=== PATIENT | male | born 1950 | race Caucasian/White ===

== ENCOUNTER → 2019-10-02 | Outpatient (CLI) | payer BC ==
--- NOTE | 2019-10-02 23:07 | XR ---
EXAMINATION TYPE: XR forearm LT DATE OF EXAM: 10/02/2019 CLINICAL HISTORY: History of surgery 20 years ago with pain. TECHNIQUE: Two views of the left forearm are obtained. COMPARISON: Prior left forearm x-ray October 28, 2011. FINDINGS: There is no acute fracture or dislocation seen in the left radius or ulna. Redemonstration of fixating plate mid to distal diaphysis of left radius through a healed fracture. Small spur olecr anon at triceps tendon attachment. Visualized portion of wrist is within normal limits. The overlyin g soft tissue appears within normal limits. IMPRESSION: As above.
== END | disposition home or self-care (01) ==
LOC: RADXRMAIN 16:45
PROVIDERS: ATTEND Internal Medicine Geriatric Medicine
DX: M77.9 Enthesopathy, unspecified (principal); M79.602 Pain in left arm

== ENCOUNTER → 2023-07-08 | Outpatient (CLI) | payer BC, MEDICARE ==
--- NOTE | 2023-07-08 14:27 | FL ---
EXAMINATION TYPE: FL barium swallow w video DATE OF EXAM: 07/08/2023 CLINICAL HISTORY: 73-year-old male R05.9 COUGH [id number] ASPIRATION, Dysphagia. TECHNIQUE: Deglutition study is performed utilizing thin liquid barium, honey, barium thick pudding, and barium coated cracker. Total fluoroscopy time: 53 seconds. Total images: None. Real-time fluoroscopy support was provided to speech pathology. DOSE AREA PRODUCT (DAP) UGY*M,MGY*CM: 37.15 COMPARISON: None. FINDINGS: The oral and pharyngeal phases show satisfactory initiation and propagation with all modalities teste d. The patient is a dentulous. However, otherwise, normal mastication is seen with solid modalities t ested. There is no evidence of penetration or aspiration with any modality tested. No significant p haryngeal residue was appreciated. IMPRESSION: Functional swallow. No penetration or aspiration. Please refer to speech therapist notes for further details if necessary.
== END | disposition home or self-care (01) ==
LOC: RADUSWWP 09:57
PROVIDERS: ATTEND Otolaryngology
DX: T17.808A Unspecified foreign body in other parts of respiratory tract causing other injury, initial encounter (principal); R05.9 Cough, unspecified; R13.10 Dysphagia, unspecified
CPT/HCPCS: 74230

== ENCOUNTER → 2024-01-21 | Outpatient (CLI) | payer MEDICARE ==
[2024-01-21 18:23] LABS: HGB 11.7 g/dL (13.0-17.0); MCH 28.7 pg (27.0-32.0); MCHC 32.5 g/dL (32.0-37.0); MCV 88.2 FL (80.0-97.0); Mean Platelet Volume 10.2 FL (9.5-12.2); NRBC Per 100 WBC 0 X 10*3/uL (0.00-0.01); Platelet Count 233 X 10*3/uL (140-440); RBC 4.08 X 10*6/uL (4.40-5.60); RDW 15.3 % (11.5-14.5); WBC 7.35 X 10*3/uL (4.50-10.00)
[2024-01-21 18:25] LABS: Blood Urea Nitrogen 18.2 mg/dL (9.0-27.0); Chloride 100 mmol/L (96-109); Potassium 4.9 mmol/L (3.5-5.5); Sodium 134 mmol/L (135-145)
== END | disposition home or self-care (01) ==
LOC: LABWHC1 14:06
PROVIDERS: ATTEND Internal Medicine Interventional Cardiology
DX: Z01.812 Encounter for preprocedural laboratory examination (principal); R06.02 Shortness of breath
CPT/HCPCS: 36415; 80051; 82565; 84520; 85027

== ENCOUNTER → 2024-01-27 | Day surgery (SDC) | payer MEDICARE, OTHER ==
[2024-01-26 08:53] VITALS: BMI 30.7
[~2024-01-27] MED LIST: ALPRAZolam 0.25 MG TAB PO PRN; ALPRAZolam 0.5 MG TAB PO PRN; ATORVASTATIN 80 MG TAB PO ONE; EMPTY BAG 1 BAG with SODIUM CHLORIDE 0.9% 1,000 ML IV SCH; HEPARIN SODIUM 1,000 UN/ML (10ML VL) ONE; HEPARIN SODIUM,PORCINE (1 ML) 2,500 UNIT in SODIUM CHLORIDE 0.9% 250 ML IRRIGATION PRN; HEPARIN SODIUM,PORCINE 10,000 UNIT in SODIUM CHLORIDE 0.9% 1,000 ML IRRIGATION PRN; NITROGLYCERIN SL TABS 0.4 MG TAB SUBLINGUAL PRN; RX INFO: IV CONTRAST WAS GIVEN 1 EACH MISC MISCELLANE PRN; SODIUM CHLORIDE 0.9% 1,000 ML IV SCH; VERAPAMIL 2.5 MG/ML 2 ML AMP ONE; carisoprodoL 350 MG TAB PO SCH
[2024-01-27] MEDS: SODIUM CHLORIDE 0.9% 1,000 ML IV ONE (06:15)
[2024-01-27] MEDS: ASPIRIN 325 MG TAB PO ONE (06:17)
[2024-01-27 06:34] LABS: Glucose,Whole Blood 144 mg/dL (70-110)
[2024-01-27 07:07] VITALS: RESP 16; TEMP 96.9
[2024-01-27] MEDS: MIDAZOLAM 2 MG/2 ML VIAL IVP ONE (07:41)
[2024-01-27] MEDS: LIDOCAINE 1% INJ 10MG/ML (20 ML MDV) SQ ONE (07:42)
[2024-01-27] MEDS: VERAPAMIL SYRINGE (5 MG/10 ML) INTRAARTER ONE (07:43)
[2024-01-27] MEDS: HEPARIN SODIUM 1,000 UN/ML (10ML VL) IVP ONE (07:48)
[2024-01-27] MEDS: IOPAMIDOL-370 100ML BTL INJ ONE ×2 (08:31→08:32)
--- NOTE | 2024-01-27 08:41 | P.PCN ---
Date of Procedure: 01/27/24 Operative Findings: CARDIAC CATHETERIZATION PERFORMING PHYSICIAN: Del Peacock MD, RPVI PROCEDURE PERFORMED: 1. Selective right and left coronary angiogram 2. Left heart catheterization 3. Ultrasound-guided access of the right radial artery 4. IFR of the left main and RCA INDICATION: Shortness of breath with exertion associated with myocardial perfusion imaging stress test abnormalities COMPLICATION: None APPROACH: Right radial artery LEVEL OF SEDATION: Moderate with a sedation length of 14 minutes PROCEDURE DESCRIPTION: After obtaining an informed consent, the patient was brought to cardiac cathode ray tube assembler. Local anesthesia was performed using lidocaine subcutaneously. The right radial artery was cannulated using Seldinger technique, the guidewire passed easily, following that we advanced a 5-Cypriot sheath dilator assembly, the wire and dilator were removed and sheath was flushed. Following that, 2 mg of verapamil along with 5000 unit heparin were given. Selective right and left coronary angiogram using a 6-Cypriot JR4 and JL 3.5 catheters. Following that we did left heart catheterization using 6-Cypriot pigtail catheter. After that we did an IFR of the left main and right coronary artery. After zeroing the Doppler wire and equalizing between the Doppler wire and guiding catheter which was JL 3.5 short the guiding catheter the left main was engaged and the wire was advanced to the LAD. We did an IFR and that came in to be at 0.83. After that I did equalized between the Doppler wire and the JR4 guiding catheter then I did engage the RCA and I did an IFR of the RCA which came to be at 0.89. The procedure was completed there was no complication. SELECTIVE CORONARY ANGIOGRAM: The right coronary artery: Large-caliber vessel and a dominant vessel with severe lesion involving the proximal to mid RCA Left main: Calcified with a distal lesion appears to be in the range of 70% documented to be flow-limiting by Doppler wire The left circumflex: Large-caliber vessel nondominant vessel with severe disease involving the mid left circumflex The left anterior descending artery: Has mild disease only HEMODYNAMICS: The LVEDP was 12 mmHg with no significant gradient across aortic valve CONCLUSION: 1. Severe disease involving the distal left main coronary artery documented to be flow-limiting by Doppler wire 2. Severe disease involving the proximal to mid LAD documented to be flow- limiting by Doppler wire POSTPROCEDURE MANAGEMENT: Evaluating the patient for CABG
--- NOTE | 2024-01-27 08:43 | P.PCN ---
Date of Procedure: 01/27/24 Operative Findings: AN ABDOMINAL AORTOGRAM AND BILATERAL LOWER EXTREMITIES RUNOFF PERFORMING PHYSICIAN: Del Peacock MD PROCEDURE PERFORMED: 1. An abdominal aortogram 2. Bilateral lower extremities runoff INDICATION: Intermittent claudication COMPLICATION: None LEVEL OF SEDATION: Moderate was sedation length of 10 minutes APPROACH: Right common femoral artery PROCEDURE DESCRIPTION: After obtaining informed consent and explaining the procedure benefits, risks, and complications, the patient was brought to the cardiac grass farm laborer. The right groin was prepped and draped in sterile fashion. The right common femoral artery was cannulated using micropuncture technique, under ultrasound guidance. A micropuncture wire was advanced, and the micropuncture sheath was advanced over the wire, then the micropuncture sheath was exchanged over an 0.35 wire into a 5-[place] sheath dilator assembly then the wire and dilator were removed and sheath was flushed. We did an abdominal aortogram and bilateral lower extremities runoff using 5- [place] pigtail catheter using a power injection. The catheter was initially placed at the level of the renal arteries, and it was pulled into above the bifurcation of the aorta into right and left common iliac arteries. The procedure was completed and there was no complications. SELECTIVE PERIPHERAL ANGIOGRAM: The abdominal aorta: Calcified with mild disease only The common iliac arteries: Angiographically normal The external iliac arteries: Are angiographically normal The internal iliac arteries: Are patent The common femoral arteries: Have mild disease only Superficial femoral arteries: Have mild to moderate diffuse disease with no high-grade stenosis Popliteal arteries: Have mild to moderate disease with no high-grade stenosis Below the knees: The arteries below the knee were poorly visualized CONCLUSION: Overall mild to moderate nonobstructive peripheral arterial disease POSTPROCEDURE MANAGEMENT: Medical treatment
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
[2024-01-27 13:57] VITALS: BP 148/74; PULSE 52
--- NOTE | 2024-01-27 14:05 | CT ---
EXAMINATION TYPE: CT chest wo con CT DLP: 611 mGycm, Automated exposure control for dose reduction was used. DATE OF EXAM: 01/27/2024 1:04 PM COMPARISON: Chest radiograph from same day. Multiple CTs of the chest with most recent on . CLINICAL INDICATION:Male, 73 years old with history of eval aorta to see whether or not it can be cla mped.; PHH, EVAL AORTA TO SEE WHETHER OR NOT IT CAN BE CLAMPED. TECHNIQUE: Multiple axial images were obtained through the chest. Sagittal and coronal reformats were created for review. Contrast used: mL of (None if empty) Oral contrast used: (None if empty) FINDINGS: LUNGS/ PLEURA: The lung parenchyma appears unremarkable. AIRWAY: Patent and unremarkable. HEART: Size within normal limits.. Moderate calcific plaque in the left main and left anterior descen ding coronary arteries MEDIASTINUM: No gross evidence of adenopathy. VASCULATURE: No aortic aneurysm. Small plaque at the valve for their origin of the ascending thor acic aorta. 3 focal plaques in the mid and distal aortic arch. . There are approximately 5 focal gurmeet ques at The junction of the middle and distal third descending thoracic aorta. Small amount of plaq ue at the aortic diaphragmatic hiatus MUSCULOSKELETAL: No acute osseous abnormalities SOFT TISSUES/LYMPH NODES: Unremarkable. LOWER NECK: No significant findings. UPPER ABDOMEN: No acute findings. Several tiny choleliths in the gallbladder. IMPRESSION: Single calcific plaque in the aortic valve or aortic origin. Only 3 focal plaques in the mid and distal aortic arch. Up to 5 focal plaque at the junction of the mid and distal third of the descending aorta. Approximately 3 focal calcific plaques within the distal aortic arch Follow up recommendations for incidental pulmonary nodules, if there are any, are per [employer] [employer] or [employer]. https://radiopaedia.org/articles/zuyumopeoq-jszcbwg-mlafswdfv-hfxdgn-dvjijuyhyvmxukv-1?lang=us
--- NOTE | 2024-01-27 14:25 | IR ---
EXAMINATION TYPE: IR angio abdominal w runoff DATE OF EXAM: 01/27/2024 FLUOROSCOPY Bilateral leg pain. 16.5min fluoro, 51.2 GYcm2. A total of 250 images are submitted.
--- NOTE | 2024-01-27 14:31 | US ---
EXAMINATION TYPE: US vein mapping BILAT DATE OF EXAM: 01/27/2024 2:23 PM COMPARISON: NONE CLINICAL INDICATION: Male, 73 years old with history of preop cardiac surgery; pre op coronary artery bypass graft SIDE PERFORMED: Bilateral TECHNIQUE: Lower extremity saphenous vein is examined and measured utilizing real time linear array sonography. Patient History: Smoker: Previous Heart Disease: Yes Vascular Surgery: No Discoloration: No Hypertension: Yes Diabetes: Yes Paralysis: No Varicosities: No Edema: No DUPLEX FINDINGS: Greater Saphenous: Color flow seen Lesser Saphenous: Color flow seen Measurements in mm: Right Greater Saphenous: Groin: 7.6 x 8.8 mm High Thigh: 4.4 x 3.9 mm Mid Thigh: 3.0 x 2.1 mm Above Knee: 3.6 x 3.0 mm Knee: 2.8 x 2.7 mm Below Knee: 2.4 x 2.1 mm Mid Calf: 1.8 x 1.9 mm At Ankle: 2.9 x 2.0 mm Left Greater Saphenous: Groin: 6.1 x 5.5 mm High Thigh: 4.2 x 3.5 mm Mid Thigh: 3.2 x 2.9 mm Above Knee: 4.2 x 3.2 mm Knee: 3.1 x 2.2 mm Below Knee: 2.6 x 2.2 mm Mid Calf: 2.0 x 1.6 mm At Ankle: 4.1 x 2.3 mm Bilateral GSV have thick vein waters with slightly smaller lumen size. Veins still appear to compr ess. IMPRESSION: 1. Bilateral GSV measurements listed above. 2. Performing surgeon to determine viability as conduit.
--- NOTE | 2024-01-27 15:23 | US ---
EXAMINATION TYPE: US carotid duplex BILAT DATE OF EXAM: 01/27/2024 COMPARISON: NONE CLINICAL INDICATION: Male, 73 years old with history of preop cardiac surgery; Prior smoker, hyperten isabelle, hyperlipidemia, diabetes. Pre op cardiac surgery. TECHNIQUE: Carotid duplex ultrasound examination. Indirect Doppler criteria was utilized. FINDINGS: EXAM MEASUREMENTS: RIGHT: Peak Systolic Velocity (PSV) cm/sec ----- Right CCA: 69.4 ----- Right ICA: 168.7 ----- Right ECA: 91.8 ICA/CCA ratio: 2.4 RIGHT: End Diastole cm/sec ----- Right CCA: 11.9 ----- Right ICA: 34.7 ----- Right ECA: 0.0 LEFT: Peak Systolic Velocity (PSV) cm/sec ----- Left CCA: 71.3 ----- Left ICA: 82.0 ----- Left ECA: 60.3 ICA/CCA ratio: 1.1 LEFT: End Diastole cm/sec ----- Left CCA: 12.0 ----- Left ICA: 18.2 ----- Left ECA: 0.0 VERTEBRALS (direction of flow): Right Vertebral: Antegrade Left Vertebral: Antegrade Rhythm: Normal BLOOD TESTER NOTES: Minimal plaque seen within bilateral bulbs. Elevated velocity within right ICA. R ight ICA dives quickly posterior-limited. IMPRESSION: Slightly elevated velocity right ICA could reflect a moderate (50-69%) stenosis. No hemodynamically s ignificant ICA stenosis on either side. Criteria for Assigning % of Stenosis / Diameter reduction (Estimation based on the indirect measurements of the internal carotid artery velocities (ICA PSV). 1. Normal (no stenosis)=ICA PSV < 125 cm/s: ratio < 2.0: ICA EDV<40 cm/s. 2. Less than 50% stenosis=ICA PSV < 125 cm/s: ratio < 2.0: ICA EDV<40 cm/s. 3. 50 to 69% stenosis=ICA PSV of 125 to 230 cm/s: ration 2.0 ? 4.0: ICA EDV 40-100 cm/s. 4. Greater than 70% stenosis to near occlusion= ICA PSV > 230 cm/s: ratio > 4.0: ICA EDV > 100 cm/s. 5. Near occlusion= ICA PSV velocities may be low or undetectable: variable ratio and ICA EDV. 6. Total occlusion=unable to detect flow.
[2024-01-27 15:38] LABS: ALT 11 U/L (4-49); AST 13 U/L (17-59); African American GFR (CKD) 65 (>60 ml/min/1.73 sqM); Albumin 3.4 g/dL (3.5-5.0); Alkaline Phosphatase 43 U/L (38-126); Anion Gap 4 mmol/L; Blood Urea Nitrogen 17 mg/dL (9-20); Calcium 8.9 mg/dL (8.4-10.2); Carbon Dioxide 28 mmol/L (22-30); Chloride 103 mmol/L (98-107); Glucose 155 mg/dL (74-99); Non-African American GFR(CKD) 56 (>60 ml/min/1.73 sqM); Potassium 4.7 mmol/L (3.5-5.1); Sodium 135 mmol/L (137-145); Total Bilirubin 0.2 mg/dL (0.2-1.3); Total Protein 5.8 g/dL (6.3-8.2)
[2024-01-27 16:09] LABS: Basophils % (A) 0 %; Eosinophils # (A) 0.1 k/uL (0-0.7); Eosinophils % (A) 1 %; HCT 35.8 % (39.0-53.0); HGB 11.3 gm/dL (13.0-17.5); Lymphocytes # (A) 1.1 k/uL (1.0-4.8); Lymphocytes % (A) 19 %; MCH 28.8 pg (25.0-35.0); MCHC 31.7 g/dL (31.0-37.0); MCV 91.1 fL (80.0-100.0); Mean Platelet Volume 9.1; Monocytes # (A) 0.3 k/uL (0-1.0); Monocytes % (A) 6 %; Neutrophils # (A) 4.3 k/uL (1.3-7.7); Neutrophils % (A) 73 %; Platelet Count 171 k/uL (150-450); RBC 3.93 m/uL (4.30-5.90); WBC 5.9 k/uL (3.8-10.6)
[2024-01-27 19:18] LABS: Chol/HDL Ratio 2.51 Ratio
[2024-01-27 19:25] LABS: Hepatitis A Antibody IgM Nonreactive (Nonreactive); Hepatitis B Core IgM Nonreactive (Nonreactive); Hepatitis B Surface Antigen Nonreactive (Nonreactive); Hepatitis C IgG Antibody Nonreactive (Nonreactive)
--- NOTE | 2024-01-28 06:58 | US ---
EXAMINATION TYPE: Pre-Operative Non-Invasive Evaluation of the hand for Potential Radial Artery Mckayla rivas, Measurements only DATE OF EXAM: 01/27/2024 2:22 PM CLINICAL INDICATION: Male, 73 years old with history of measurements only; Pre op cardiac surgery SIDE PERFORMED: Left TECHNIQUE: Radial artery is measured utilizing real time linear array sonography. Dominant hand: Right Duplex Findings: Radial Artery: Color flow seen Measurements in mm, transverse view: Left Radial: Proximal: 3.6 x 3.1 mm Mid: 3.1 x 2.8 mm Distal: 2.8 x 2.2 mm IMPRESSION: Patent left radial artery with measurements described above.
== END ==
LOC: CATHCVL 06:06
PROVIDERS: ATTEND Internal Medicine Interventional Cardiology
DX: I25.10 Atherosclerotic heart disease of native coronary artery without angina pectoris (principal); I10 Essential (primary) hypertension; G89.29 Other chronic pain; E78.5 Hyperlipidemia, unspecified; E11.51 Type 2 diabetes mellitus with diabetic peripheral angiopathy without gangrene; E11.42 Type 2 diabetes mellitus with diabetic polyneuropathy; M19.90 Unspecified osteoarthritis, unspecified site; H91.90 Unspecified hearing loss, unspecified ear; F12.90 Cannabis use, unspecified, uncomplicated; Z79.84 Long term (current) use of oral hypoglycemic drugs; Z88.8 Allergy status to other drugs, medicaments and biological substances; Z79.899 Other long term (current) drug therapy; Z87.891 Personal history of nicotine dependence
CPT/HCPCS: 94150; 93458; 93799; 75625; 75716; 76937; 80061; 80053; 80074; 84443; 85025; 87070; 83036; 93931; 93970; 93880; 71250; C1769 ×3; C1887 ×2; C1894; J2250; J2001; J1644; Q9967; 86850; 86900; 86901; 86920

== ENCOUNTER → 2024-01-29 | Outpatient (CLI) | payer OTHER ==
[2024-01-29 22:45] LABS: ALT 11 U/L (10-49); AST 14 U/L (14-35); Albumin 4.5 g/dL (3.8-4.9); Albumin/Globulin Ratio 1.96 Ratio (1.60-3.17); Alkaline Phosphatase 45 U/L (41-126); BUN/Creat Ratio 13.36 Ratio (12.00-20.00); Blood Urea Nitrogen 14.7 mg/dL (9.0-27.0); Calcium 9.9 mg/dL (8.7-10.3); Carbon Dioxide 23.7 mmol/L (21.6-31.8); Chloride 99 mmol/L (96-109); Globulin 2.3 g/dL (1.6-3.3); Glucose 106 mg/dL (70-110); Potassium 4.5 mmol/L (3.5-5.5); Sodium 135 mmol/L (135-145); Total Bilirubin 0.3 mg/dL (0.3-1.2); Total Protein 6.8 g/dL (6.2-8.2)
== END | disposition home or self-care (01) ==
LOC: LABWHC1 08:29
PROVIDERS: ATTEND Internal Medicine Geriatric Medicine
DX: I12.9 Hypertensive chronic kidney disease with stage 1 through stage 4 chronic kidney disease, or unspecified chronic kidney disease (principal); N18.9 Chronic kidney disease, unspecified
CPT/HCPCS: 36415; 80053

== ENCOUNTER → 2024-02-02 | Outpatient (CLI) | payer OTHER ==
[2024-02-02 09:15] LABS: INR 0.9 (<1.2); Partial Thromboplastin Time 26.6 sec (22.0-30.0); Prothrombin Time 10.4 sec (10.0-12.5)
[2024-02-02 09:18] LABS: Appearance,Urine Clear (Clear); Bilirubin,Urine Negative (Negative); Blood,Urine Trace (Negative); Color,Urine Colorless; Glucose,Urine (UA) Negative (Negative); Ketones,Urine Negative (Negative); Leukocyte Esterase,Urine Negative (Negative); Nitrite,Urine Negative (Negative); Protein,Urine Negative (Negative); RBC,Urine <1 /hpf (0-5); Specific Gravity,Urine 1.008 (1.001-1.035); Urobilinogen,Urine <2.0 mg/dL (<2.0); WBC,Urine <1 /hpf (0-5)
--- NOTE | 2024-02-02 09:47 | XR ---
EXAMINATION TYPE: XR chest 2V DATE OF EXAM: 02/02/2024 8:50 AM CLINICAL INDICATION:Male, 73 years old with history of PRE SURG TESTING; [facility] COMPARISON: Chest radiographs from 02/02/2024 TECHNIQUE: XR chest 2V Frontal and lateral views of the chest. FINDINGS: Lungs/Pleura: There is no evidence of pleural effusion, focal consolidation, or pneumothorax. Pulmonary vascularity: Unremarkable. Heart/mediastinum: Cardiomediastinal silhouette is unremarkable. Musculoskeletal: No acute osseous pathology. Severe degeneration changes of the left shoulder. IMPRESSION: No acute cardiopulmonary disease/process.
== END | disposition home or self-care (01) ==
LOC: LABPAT 08:17
PROVIDERS: ATTEND Thoracic Surgery (Cardiothoracic Vascular Surgery)
DX: Z01.812 Encounter for preprocedural laboratory examination (principal); R07.9 Chest pain, unspecified; R06.02 Shortness of breath
CPT/HCPCS: 36415; 71046; 81001; 83735; 85610; 85730

== ENCOUNTER 2024-02-07 05:34 | Inpatient (IN) | payer OTHER ==
[~2024-02-07 05:34] MED LIST changes: +ALBUMIN HUMAN 25% 50 ML IV ONE; +ALBUMIN HUMAN 5% 500 ML IVPB ONE; -ALPRAZolam 0.25 MG TAB PO PRN; -ALPRAZolam 0.5 MG TAB PO PRN; +ASPIRIN 325 MG TAB PO ONE; -ATORVASTATIN 80 MG TAB PO ONE; +CALCIUM CHLORIDE 100 MG/ML 10 ML SYRINGE IV ONE; +CLEVIDIPINE BUTYRATE 25 MG in EMPTY BAG 1 BAG IV ONE; +ELECTROLYTE-A SOLUTION 1,000 ML with POTASSIUM CHLORIDE 100 MEQ, MAGNESIUM SULFATE 16 M... IV ONE; +ELECTROLYTE-A SOLUTION 1,000 ML with POTASSIUM CHLORIDE 40 MEQ, MAGNESIUM SULFATE 16 ME... IV ONE; -EMPTY BAG 1 BAG with SODIUM CHLORIDE 0.9% 1,000 ML IV SCH; +HEPARIN SODIUM 1,000 UN/ML (10ML VL) IV ONE; -HEPARIN SODIUM 1,000 UN/ML (10ML VL) ONE; -HEPARIN SODIUM,PORCINE (1 ML) 2,500 UNIT in SODIUM CHLORIDE 0.9% 250 ML IRRIGATION PRN; +HEPARIN SODIUM,PORCINE (1 ML) 5,000 UNIT in SODIUM CHLORIDE 0.9% 500 ML 500 ML IV ONE; -HEPARIN SODIUM,PORCINE 10,000 UNIT in SODIUM CHLORIDE 0.9% 1,000 ML IRRIGATION PRN; +INSULIN REGULAR 100 UNIT in SODIUM CHLORIDE 0.9% 100 ML IV ONE; +LACTATED RINGERS 1,000 ML IV ONE; +MAGNESIUM SULFATE 16.24 MEQ in EMPTY SYRINGE 1 SYR IV ONE; +MANNITOL 25% 12.5 GM/50 ML VIAL IV ONE; +NITROGLYCERIN SL TABS 0.4 MG TAB SUBLINGUAL ONE; -NITROGLYCERIN SL TABS 0.4 MG TAB SUBLINGUAL PRN; +NITROGLYCERIN-D5W PMX 25 MG/250 ML BTL IV ONE; +NITROGLYCERIN-D5W PMX 50 MG in DEXTROSE/WATER 1 250ML.BAG IV ONE; +NOREPINEPHRINE 4 MG in SODIUM CHLORIDE 0.9% 250 ML IV ONE; +PAPAVERINE 360 MG in SODIUM CHLORIDE 0.9% 90 ML IV ONE; +PHENYLEPHRINE 10 MG/ML VIAL IV ONE; +PHENYLEPHRINE 40 MG in SODIUM CHLORIDE 0.9% 250 ML IV ONE; +PROTAMINE SULFATE 10 MG/ML 25 ML VIAL IV ONE; +PROTAMINE SULFATE 250 MG in EMPTY BAG 1 BAG IV ONE; -RX INFO: IV CONTRAST WAS GIVEN 1 EACH MISC MISCELLANE PRN; +SODIUM BICARB 8.4% 50 ML SYR (1 MEQ/ML) IV ONE; +SODIUM CHLORIDE 0.9% 1,000 ML IV ONE; -SODIUM CHLORIDE 0.9% 1,000 ML IV SCH; +TRANEXAMIC ACID 2,000 MG in SODIUM CHLORIDE 0.9% 80 ML IV ONE; -VERAPAMIL 2.5 MG/ML 2 ML AMP ONE; -carisoprodoL 350 MG TAB PO SCH; +ceFAZolin 1,000 MG in SODIUM CHLORIDE 0.9% IRRIGATIO 1,000 ML IRRIGATION ONE; +propofoL 1,000 MG/100 ML VIAL IV ONE
[2024-02-07] MEDS: LACTATED RINGERS 1,000 ML IV ONE (06:09)
[2024-02-07] MEDS: CHLORHEXIDINE GLUCONATE 15 ML CUP MUCOUS MEM ONE (06:14)
[2024-02-07] MEDS: METOPROLOL TARTRATE 12.5 MG TAB PO ONE (06:14)
[2024-02-07] MEDS: ATORVASTATIN 10 MG TAB PO ONE (06:14)
[2024-02-07 06:40] LABS: Glucose,Whole Blood 92 mg/dL (70-110)
[2024-02-07] MEDS: hydrALAZINE HCL 20 MG/ML 1 ML VIAL IVP ONE (06:53)
[2024-02-07] MEDS ORDERED: HEPARIN SODIUM,PORCINE 10,000 UNIT/ML 1 ML VIAL ONE (07:51)
[2024-02-07] MEDS ORDERED: HEPARIN SODIUM,PORCINE 5,000 UNIT/ML 1 ML VIAL ONE (07:51)
[2024-02-07] MEDS ORDERED: PROPOFOL 10 MG/ML 20 ML VIAL IV ONE (07:51)
[2024-02-07] MEDS ORDERED: VECURONIUM 10 MG VIAL IV ONE (07:51)
[2024-02-07] MEDS ORDERED: ALBUMIN HUMAN 5% (25gm) 500 ML VIAL IVPB ONE (07:51)
[2024-02-07] MEDS ORDERED: PROTAMINE SULFATE 10 MG/ML 25 ML VIAL IV ONE (07:51)
[2024-02-07] MEDS ORDERED: MIDAZOLAM HCL 10 MG/10 ML VIAL ONE (07:51)
[2024-02-07] MEDS ORDERED: PHENYLEPHRINE 10 MG/ML VIAL ONE (07:51)
[2024-02-07] MEDS ORDERED: fentaNYL (PF) 50 MCG/ML 50 ML VIAL ONE (07:51)
[2024-02-07 08:28] LABS: ABG Base Excess 0.6 mmol/L; ABG HCO3 25 mmol/L (21-25); ABG PCO2 39 mmHg (35-45); ABG PH 7.42 (7.35-7.45); ABG PO2 341 mmHg (83-108); ABG TCO2 26 mmol/L (19-24); Allen Test Performed? Yes
[2024-02-07 09:31] LABS: ABG Base Excess -0.7 mmol/L; ABG Glucose Whole Blood 146 mg/dL (75-99); ABG HCO3 26 mmol/L (21-25); ABG Hematocrit 29 % (34.0-46.0); ABG Ionized Calcium 4.8 mg/dL (4.5-5.3); ABG Lactic Acid Whole Blood 0.7 mmol/L (0.5-1.6); ABG Oxygen Saturation 98.6 % (94-97); ABG PCO2 49 mmHg (35-45); ABG PH 7.33 (7.35-7.45); ABG PO2 150 mmHg (83-108); ABG Potassium Whole Blood 4.3 mmol/L (3.4-4.5); ABG Sodium Whole Blood 136 mmol/L (135-146); Allen Test Performed? Yes
[2024-02-07] MEDS: PAPAVERINE 360 MG in SODIUM CHLORIDE 0.9% 90 ML IV ONE (09:52)
[2024-02-07] MEDS: SODIUM CHLORIDE 0.9% 500 ML 500 ML with HEPARIN SODIUM,PORCINE (1 ML) 5,000 UNIT IV ONE (09:52)
[2024-02-07] MEDS: ceFAZolin 1,000 MG in SODIUM CHLORIDE 0.9% 1,000 ML IRRIGATION ONE (09:52)
[2024-02-07] MEDS: DILTIAZEM 125 MG in SODIUM CHLORIDE 0.9% 100 ML IV ONE (09:52)
[2024-02-07 10:40] LABS: ABG Base Excess -0.1 mmol/L; ABG Glucose Whole Blood 133 mg/dL (75-99); ABG HCO3 26 mmol/L (21-25); ABG Hematocrit 38 % (34.0-46.0); ABG Ionized Calcium 4.8 mg/dL (4.5-5.3); ABG Lactic Acid Whole Blood 0.5 mmol/L (0.5-1.6); ABG Oxygen Saturation 98.9 % (94-97); ABG PCO2 44 mmHg (35-45); ABG PH 7.37 (7.35-7.45); ABG PO2 195 mmHg (83-108); ABG Potassium Whole Blood 4.1 mmol/L (3.4-4.5); ABG Sodium Whole Blood 135 mmol/L (135-146); Allen Test Performed? Yes
[2024-02-07 11:47] LABS: ABG Base Excess -2.6 mmol/L; ABG Glucose Whole Blood 138 mg/dL (75-99); ABG HCO3 23 mmol/L (21-25); ABG Hematocrit 25 % (34.0-46.0); ABG Ionized Calcium 5.1 mg/dL (4.5-5.3); ABG Lactic Acid Whole Blood <0.4 mmol/L (0.5-1.6); ABG Oxygen Saturation 98.9 % (94-97); ABG PCO2 41 mmHg (35-45); ABG PH 7.36 (7.35-7.45); ABG PO2 201 mmHg (83-108); ABG Potassium Whole Blood 3.7 mmol/L (3.4-4.5); ABG Sodium Whole Blood 137 mmol/L (135-146); Allen Test Performed? Yes
--- NOTE | 2024-02-07 12:22 | P.OP ---
Date of Procedure: 02/07/24 Preoperative Diagnosis: 3v CAD DM HTN HLD PVD Postoperative Diagnosis: Same Procedure(s) Performed: 1. Off pump coronary artery bypass grafting x 3. Left internal thoracic artery (in-situ) to left anterior descending coronary artery. Radial artery from aorta to 1st diagonal artery. Reverse saphenous vein from aorta to distal right coronary artery. 2. Left atrial appendage ligation using #35mm AtriClip 3. Endoscopic left radial and left greater saphenous vein harvest 4. Graft flow measurements using the Medi-Stim flow meter system. 5. Trans-esophageal echo Implants: #35mm AtriClip Anesthesia: GERA Surgeon: Galo Hines Storage And Backup Administrator #1: Trevin Cooley Pathology: none sent Condition: critical Disposition: ICU Indications for Procedure: This patient is a 73 year-old M who was being worked up for peripheral vascular disease and failed a stress test. Coronary angiography revealed significant distal left main coronary artery disease as well as severe stenosis in the circumflex and right coronary arteries. His STS risk of morbidity and mortality was discussed with him and CABG was recommended. Operative Findings: RICO 1.75mm good conduit. LAD 1.5mm decent target. PAGE-LAD Flow 15ml/min, P.I. 2.5 SVG 2.75mm decent conduit. RCA 2.0mm good target. SVG-RCA Flow 53ml/min, P.I. 1.2 RA 2.25mm good conduit. 1st Diagonal 1.5mm good target. RA-Diag Flow 33ml/min, P.I. 1.0 Description of Procedure: The patient underwent central line, arterial line, and Comstock Faviola catheter placement in the pre-operative suite by the anesthesia team. The patient was then brought to the operating room and placed in the supine position. General anesthesia was induced and the patient was prepped from the chin to the ankles in the usual sterile fashion. A time-out was performed and antibiotics were given. A midline incision was made on the chest and carried down to bone. A median sternotomy was performed. Hemostasis on the bone was achieved using electrocautery. The left pleura was entered and the left internal thoracic artery was harvested in a skeletonized fashion. Simultaneously a physician office clerk assistant harvested the left greater saphenous vein and left radial artery in an endoscopic fashion. The patient was systemically heparinized and the RICO was transected and placed in a papaverine jacuzzi. A left sided chest tube was placed. The pericardium was incised in a reverse T-fashion and a pericardial cradle was created. The right pleura was opened. Stay sutures were placed. #35mm AtriClip was placed on the left atrial appendage. With ACT > 250, the octopus sabilizer was placed on the mid to distal LAD which was a good target. An ateriorotomy was made and 1.5mm shunt inserted. An end to side anastomosis between the RICO and LAD was performed using a running 7-0 prolene. The shunt was removed prior to t ieing down the suture. Next stay sutures were placed on the diaphragm near the IVC and oblique sinus. The inferior wall was exposed and the distal right coronary artery was stabilized. The artery was opened it was a good target and 2.0mm flow through inserted. An end to side anastomosis between the saphenous vein and RCA was performed using a running 7-0 prolene again removing the shunt prior to tieing down the suture. Next the lateral wall was exposed and the first diagonal artery was identified. The stabilizer was placed on the vessel and arteriorotomy was made. 1.5mm flow through was inserted. An end to side anastomosis was created with the radial artery and diagonal artery using a running 7-0 prolene. The flow through was removed prior to tieing down the suture. Next, the heartstring device was used to create aortotomy x 2. The saphenous vein and radial artery were fastened to the ascending aorta using a running 5-0 prolene suture in an end to side fashion. The heartstring device was removed in its entirety x 2. At this point, graft flows were measured which were excellent. At this point, protamine was given and hemostasis was secured. A 32F chest tube and 19F rinku were placed in the mediastinum and right pleura respectively. The pericardium was reapproximated partially and the sternum was closed with pioneer cables and layers of suture. The leg was closed in layers as well. The patient tolerated the procedure without any significant hypotension and was transferred to CVICU in critical condition on only nitro gtt.
[2024-02-07] MEDS ORDERED: Potassium Replacement Protocol 1 EACH MISC MISCELLANE PRN (12:23)
[2024-02-07] MEDS ORDERED: AMIODARONE 450 MG in DEXTROSE 5% IN WATER 250 ML IV PRN (12:23)
[2024-02-07] MEDS ORDERED: BENZOCAINE/MENTHOL LOZENG 1 EACH LOZENGE MUCOUS MEM PRN (12:23)
[2024-02-07] MEDS ORDERED: Magnesium Replacement Protocol 1 EACH MISC MISCELLANE PRN (12:23)
[2024-02-07] MEDS ORDERED: DEXTROSE 50% SYRINGE 50 ML IVP PRN ×2 (12:23)
[2024-02-07] MEDS ORDERED: IPRATROPIUM-ALBUTEROL 3 ML NEB INHALATION PRN (12:23)
[2024-02-07] MEDS ORDERED: AMIODARONE 360 MG in DEXTROSE 5% IN WATER 200 ML IV PRN (12:23)
[2024-02-07] MEDS ORDERED: DEXTROSE 5% IN WATER 100 ML with AMIODARONE 150 MG IV PRN (12:23)
[2024-02-07] MEDS ORDERED: DEXMEDETOMIDINE/0.9% NACL(PMX) 400 MCG in EMPTY BAG 1 BAG IV SCH (12:45)
[2024-02-07] MEDS: NITROGLYCERIN-D5W PMX 50 MG in DEXTROSE/WATER 1 250ML.BAG IV SCH (12:45)
[2024-02-07] MEDS: LACTATED RINGERS 1,000 ML IV SCH (12:45)
[2024-02-07] MEDS: CLEVIDIPINE BUTYRATE 25 MG in EMPTY BAG 1 BAG IV SCH (12:46)
[2024-02-07] MEDS: ALBUMIN HUMAN 5% 250 ML in EMPTY BAG 1 BAG IVPB PRN (12:47)
[2024-02-07 12:49] LABS: Glucose,Whole Blood 164 mg/dL (70-110)
[2024-02-07 13:07] LABS: Basophils % (A) 0 %; Eosinophils # (A) 0.1 k/uL (0-0.7); Eosinophils % (A) 1 %; HCT 28.4 % (39.0-53.0); Lymphocytes # (A) 1.1 k/uL (1.0-4.8); Lymphocytes % (A) 14 %; MCH 29.2 pg (25.0-35.0); MCHC 32.7 g/dL (31.0-37.0); MCV 89.6 fL (80.0-100.0); Mean Platelet Volume 8.9; Monocytes # (A) 0.4 k/uL (0-1.0); Monocytes % (A) 6 %; Neutrophils # (A) 6.4 k/uL (1.3-7.7); Neutrophils % (A) 79 %; Platelet Count 139 k/uL (150-450); RBC 3.17 m/uL (4.30-5.90); WBC 8.1 k/uL (3.8-10.6)
[2024-02-07 13:11] LABS: HGB 9.3 gm/dL (13.0-17.5)
[2024-02-07 13:12] LABS: INR 1.1 (<1.2); Partial Thromboplastin Time 28.6 sec (22.0-30.0); Prothrombin Time 12.2 sec (10.0-12.5)
[2024-02-07 13:19] LABS: Ionized Calcium 4.9 mg/dL (4.5-5.3)
--- NOTE | 2024-02-07 13:31 | XR ---
EXAMINATION TYPE: XR chest 1V portable DATE OF EXAM: 02/07/2024 1:25 PM CLINICAL INDICATION:Male, 73 years old with history of Post Operative Cardiac Surgery; [facility] COMPARISON: Chest radiographs from TECHNIQUE: XR chest 1V portable Frontal view of the chest. FINDINGS: Lungs/Pleura: There is no evidence of pleural effusion, focal consolidation, or pneumothorax. Pulmonary vascularity: Unremarkable. Heart/mediastinum: Cardiomediastinal silhouette is prominent in size. Atherosclerotic calcifications are seen in the aorta. Left atrial appendage occlusion device is present. Musculoskeletal: No acute osseous pathology. Midline sternotomy wires are noted. Other findings: None Lines/Tubes: Endotracheal tube with distal tip 5.1 cm above the lavonne. Nasogastric tube with its distal tip and side-port projecting under the diaphragm. There is a [place]-Faviola catheter with tip projecting over the spine. Bilateral thoracotomy tubes are present without evidence of pneumothorax. Drainage tubes with tips projecting over the mediastinum. IMPRESSION: Post surgical changes. No evidence for acute complication.
[2024-02-07] MEDS: INSULIN REGULAR 100 UNIT in SODIUM CHLORIDE 0.9% 100 ML IV SCH (13:37)
[2024-02-07 13:39] LABS: ABG Base Excess -1.8 mmol/L; ABG HCO3 23 mmol/L (21-25); ABG Oxygen Saturation 99.7 % (94-97); ABG PCO2 36 mmHg (35-45); ABG PH 7.41 (7.35-7.45); ABG PO2 >400 mmHg (83-108); ABG TCO2 24 mmol/L (19-24); Allen Test Performed? Yes
[2024-02-07 13:44] LABS: ALT 9 U/L (4-49); AST 14 U/L (17-59); African American GFR (CKD) >90 (>60 ml/min/1.73 sqM); Albumin 3.1 g/dL (3.5-5.0); Alkaline Phosphatase 32 U/L (38-126); Anion Gap 4 mmol/L; Blood Urea Nitrogen 16 mg/dL (9-20); Calcium 8.4 mg/dL (8.4-10.2); Carbon Dioxide 21 mmol/L (22-30); Chloride 109 mmol/L (98-107); Glucose 143 mg/dL (74-99); Magnesium 1.7 mg/dL (1.6-2.3); Non-African American GFR(CKD) >90 (>60 ml/min/1.73 sqM); Potassium 4.3 mmol/L (3.5-5.1); Sodium 134 mmol/L (137-145); Total Bilirubin 0.3 mg/dL (0.2-1.3); Total Protein 5.2 g/dL (6.3-8.2)
[2024-02-07 14:01] LABS: Glucose,Whole Blood 170 mg/dL (70-110)
[2024-02-07] MEDS: MAGNESIUM SULFATE-D5W PMX 1 GM in DEXTROSE/WATER 1 100ML.BAG IVPB ONE (14:32)
[2024-02-07 15:02] LABS: Glucose,Whole Blood 187 mg/dL (70-110)
[2024-02-07 15:49] LABS: Glucose,Whole Blood 198 mg/dL (70-110)
[2024-02-07 16:45] LABS: ABG Base Excess -2.8 mmol/L; ABG HCO3 24 mmol/L (21-25); ABG Oxygen Saturation 98.6 % (94-97); ABG PCO2 47 mmHg (35-45); ABG PO2 112 mmHg (83-108); ABG TCO2 25 mmol/L (19-24); Allen Test Performed? Yes
[2024-02-07 16:52] LABS: Basophils % (A) 0 %; Eosinophils % (A) 0 %; HCT 28.1 % (39.0-53.0); HGB 9.6 gm/dL (13.0-17.5); Lymphocytes # (A) 1.1 k/uL (1.0-4.8); Lymphocytes % (A) 11 %; MCH 30.1 pg (25.0-35.0); MCV 88.5 fL (80.0-100.0); Mean Platelet Volume 8.5; Monocytes # (A) 0.5 k/uL (0-1.0); Monocytes % (A) 5 %; Neutrophils # (A) 8.5 k/uL (1.3-7.7); Neutrophils % (A) 83 %; Platelet Count 168 k/uL (150-450); RBC 3.18 m/uL (4.30-5.90); WBC 10.3 k/uL (3.8-10.6)
[2024-02-07] MEDS: IPRATROPIUM-ALBUTEROL 3 ML NEB INHALATION SCH ×2 (16:52→21:06)
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
[2024-02-07 17:19] LABS: Glucose,Whole Blood 161 mg/dL (70-110)
[2024-02-07] MEDS: HEPARIN SODIUM,PORCINE 5,000 UNIT/ML 1 ML VIAL SQ SCH (17:24)
[2024-02-07] MEDS: KETOROLAC 15 MG/ML 1 ML VIAL IVP SCH (17:44)
[2024-02-07 18:18] LABS: Glucose,Whole Blood 144 mg/dL (70-110)
[2024-02-07] MEDS: ACETAMINOPHEN IV (For NPO) 1,000 MG in EMPTY BAG 1 BAG IVPB SCH (18:26)
[2024-02-07 18:43] LABS: Glucose,Whole Blood 150 mg/dL (70-110)
[2024-02-07] MEDS: hydrALAZINE HCL 20 MG/ML 1 ML VIAL IVP PRN (18:47)
[2024-02-07 19:34] LABS: Basophils % (A) 0 %; Eosinophils % (A) 0 %; HCT 30.5 % (39.0-53.0); HGB 10.1 gm/dL (13.0-17.5); Lymphocytes % (A) 7 %; MCH 29.7 pg (25.0-35.0); MCHC 33.3 g/dL (31.0-37.0); MCV 89.4 fL (80.0-100.0); Mean Platelet Volume 8.9; Monocytes % (A) 7 %; Neutrophils % (A) 85 %; Platelet Count 203 k/uL (150-450); RBC 3.41 m/uL (4.30-5.90); RDW 15.1 % (11.5-15.5); WBC 14.2 k/uL (3.8-10.6)
[2024-02-07] MEDS: ONDANSETRON 4 MG/2 ML VIAL IVP PRN (20:00)
[2024-02-07 20:07] LABS: Glucose,Whole Blood 125 mg/dL (70-110)
[2024-02-07 20:51] LABS: Glucose,Whole Blood 109 mg/dL (70-110)
[2024-02-07 21:57] LABS: Glucose,Whole Blood 130 mg/dL (70-110)
[2024-02-07 23:17] LABS: Glucose,Whole Blood 141 mg/dL (70-110)
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
[2024-02-08 00:07] LABS: Glucose,Whole Blood 131 mg/dL (70-110)
[2024-02-08 01:10] LABS: Glucose,Whole Blood 110 mg/dL (70-110)
[2024-02-08 03:00] LABS: Glucose,Whole Blood 130 mg/dL (70-110)
[2024-02-08 04:22] LABS: Glucose,Whole Blood 141 mg/dL (70-110)
[2024-02-08 05:16] LABS: Glucose,Whole Blood 120 mg/dL (70-110)
[2024-02-08 05:23] LABS: Basophils % (A) 0 %; Eosinophils % (A) 0 %; HCT 30.8 % (39.0-53.0); HGB 10.1 gm/dL (13.0-17.5); Lymphocytes # (A) 0.5 k/uL (1.0-4.8); Lymphocytes % (A) 5 %; MCH 29.2 pg (25.0-35.0); MCHC 32.8 g/dL (31.0-37.0); MCV 89.1 fL (80.0-100.0); Mean Platelet Volume 10.1; Monocytes # (A) 0.7 k/uL (0-1.0); Monocytes % (A) 7 %; Neutrophils % (A) 87 %; Platelet Count 177 k/uL (150-450); RBC 3.45 m/uL (4.30-5.90); WBC 10.3 k/uL (3.8-10.6)
[2024-02-08 05:31] LABS: Ionized Calcium 4.8 mg/dL (4.5-5.3)
[2024-02-08 05:47] LABS: ALT 13 U/L (4-49); AST 19 U/L (17-59); African American GFR (CKD) >90 (>60 ml/min/1.73 sqM); Albumin 3.2 g/dL (3.5-5.0); Alkaline Phosphatase 33 U/L (38-126); Anion Gap 5 mmol/L; Blood Urea Nitrogen 16 mg/dL (9-20); Calcium 8.8 mg/dL (8.4-10.2); Carbon Dioxide 22 mmol/L (22-30); Chloride 105 mmol/L (98-107); Glucose 108 mg/dL (74-99); Magnesium 1.8 mg/dL (1.6-2.3); Non-African American GFR(CKD) 87 (>60 ml/min/1.73 sqM); Sodium 132 mmol/L (137-145); Total Bilirubin 0.3 mg/dL (0.2-1.3); Total Protein 5.4 g/dL (6.3-8.2)
[2024-02-08] MEDS: METOCLOPRAMIDE 5 MG/ML 2 ML VIAL IVP PRN (06:24)
[2024-02-08 06:31] LABS: Glucose,Whole Blood 104 mg/dL (70-110)
[2024-02-08] MEDS: MAGNESIUM SULFATE-D5W PMX 1 GM in DEXTROSE/WATER 1 100ML.BAG IVPB ONE (06:51)
[2024-02-08] MEDS ORDERED: ACETAMINOPHEN TAB 325 MG TAB PO PRN (07:23)
--- NOTE | 2024-02-08 07:38 | XR ---
EXAMINATION TYPE: XR chest 1V portable DATE OF EXAM: 02/08/2024 Comparison: 02/07/2024 Clinical History: 73-year-old male Post Operative Cardiac Surgery Findings: Right IJ Ralph-Faviola catheter tip at the proximal right main pulmonary artery. Interval extubation and removal of NG tube. Mediastinal drain is in place. Median sternotomy wires and post-CABG clips. Bilat eral chest tubes are in place. No appreciable pneumothorax. Hypoventilatory changes. Some increasing crowding of the vasculature. Worsening patchy left mid and lower lung opacity and ongoing small effus ion. Impression: Interval extubation with diminishing lung volumes. Slight worsening patchy postoperative atelectasis at the left base with similar small left effusion.
[2024-02-08] MEDS ORDERED: CYCLOBENZAPRINE 10 MG TAB PO PRN (07:43)
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
[2024-02-08] MEDS ORDERED: METOPROLOL TARTRATE 12.5 MG TAB PO SCH (09:00)
[2024-02-08] MEDS: METOPROLOL TARTRATE 25 MG TAB PO SCH (09:04)
[2024-02-08] MEDS: ASPIRIN 325 MG TAB PO SCH (09:04)
[2024-02-08] MEDS: ATORVASTATIN 40 MG TAB PO SCH (09:04)
[2024-02-08] MEDS: CLOPIDOGREL 75 MG TAB PO SCH (09:04)
[2024-02-08] MEDS: TAMSULOSIN 0.4 MG CAP.ER.24H PO SCH (09:04)
[2024-02-08] MEDS: PANTOPRAZOLE 40 MG/10 ML VIAL IVP SCH (09:05)
[2024-02-08 09:07] LABS: Glucose,Whole Blood 142 mg/dL (70-110)
[2024-02-08 11:41] LABS: Glucose,Whole Blood 127 mg/dL (70-110)
[2024-02-08] MEDS: amLODIPine 5 MG TAB PO SCH (12:39)
[2024-02-08] MEDS: carisoprodoL 350 MG TAB PO PRN (13:06)
[2024-02-08 13:10] LABS: Glucose,Whole Blood 102 mg/dL (70-110)
[2024-02-08 13:41] VITALS: BMI 29.9
[2024-02-08 14:01] LABS: Glucose,Whole Blood 126 mg/dL (70-110)
--- NOTE | 2024-02-08 15:00 | P.PN ---
Subjective Progress Note Date: 02/08/24 Principal diagnosis: Status post CABG, postoperative day #1 This is a 73-year-old male patient with a known history of peripheral vascular disease, hyperlipidemia, hypertension, diabetes mellitus, coronary artery disease. He was brought in today electively for an off-pump coronary artery bypass grafting x 3. He received a PAGE to the LAD, left radial artery to the first diagonal branch, reverse saphenous vein graft from aorta to the distal right coronary artery. He had undergone left atrial appendage ligation and clipping. He is seen today in the postoperative period in the intensive care unit. He is currently intubated and on the mechanical ventilator. Current se ttings are assist-control mode at a rate of 14, tidal volume 450, FiO2 40% and a PEEP of 5. Arterial blood gases revealed a PaO2 greater than 400, pCO2 of 36 and a pH of 7.41. That was on 100% FiO2. White count 8.1. Hemoglobin 9.3. Platelets 139. Sodium 134. Potassium 4.3. Bicarb 21. BUN 16. Creatinine 0.71. Glucose 143. AST 14. ALT 9. Albumin 3.1. His cardiac output is 7.3. Cardiac index 3.7. PA pressures 32/16. CVP of 9. He has a right IJ [place]-Faviola catheter in place. Right radial arterial line in place. He is currently on Cleviprex at 5 mg/h. Insulin at 6 units/h lactated Ringer's at 50 MLS per hour and a nitroglycerin drip at 10 mcg/min. Chest x-ray reveals endotracheal tube above the lavonne. Nasogastric tube in position. [place]-Faviola catheter in position. Bilateral thoracotomy tubes with mediastinal tubes as well. He has been initiated on bronchodilators. Patient was reevaluated today on 02/08/2024, patient is status post off pump coronary artery bypass grafting x 3, left internal thoracic artery (in-situ) to left anterior descending coronary artery, radial artery from aorta to 1st diagonal artery, reverse saphenous vein from aorta to distal right coronary artery postoperative day #1. Patient is doing well, he was extubated last night at 16: 52, and his overnight was basically uneventful, this morning the patient is relatively asymptomatic, on room air, does not seem to be in any distress. Remains on insulin at 2.4 units/h, cardiac output is 5.8 cardiac index is 2.9. Patient is hemodynamically stable, not requiring any inotropes or any pressors. Still attempting incentive spirometry, some of his lines and tubes may be removed today. Chest x-ray showed no evidence of congestive heart failure, he does have left basilar atelectasis and possibly a small tiny pleural effusionCBC is relatively normal., Basic metabolic profile is unremarkable, and he has a relatively normal renal profile Objective - Vital Signs Vital signs: Vital Signs Temp 99.3 F 02/08/24 12:00 Pulse 79 02/08/24 14:00 Resp 21 02/08/24 14:00 BP 147/67 02/08/24 14:00 Pulse Ox 94 L 02/08/24 14:00 FiO2 40 02/07/24 16:50 Intake & Output 02/07/24 02/08/24 02/08/24 18:59 06:59 18:59 Intake Total 804.828 9285.062 852.079 Output Total 1315 985 323 Balance -457.335 237.062 529.079 Weight 84 kg 84 kg Intake: IV 178 1008 484 0.9ns pressure bag 54 108 54 ACETAMINOPHEN IV (For NPO 100 ) 1,000 mg In Empty Bag 1 bag @ 400 mls/hr IVPB Q6HR NAIF Rx#:[id number] CO/CI 120 160 20 Lactated Ringers 1,000 ml 540 310 @ 20 mls/hr IV .Q24H NAIF Rx#:[id number] Magnesium Sulfate-D5w Pmx 100 1 gm In Dextrose/Water 1 100ml.bag @ 100 mls/hr IVPB ONCE ONE Rx#: [id number] ceFAZolin 2 gm In Sodium 100 Chloride 0.9% 50 ml @ 100 mls/hr IVPB Q8HR NAIF Rx# :[id number] Intake, IV Titration 679.665 214.062 18.079 Amount Albumin Human 5% 250 ml 250 In Empty Bag 1 bag @ 250 mls/hr IVPB Q1HR PRN Rx#: [id number] Clevidipine Butyrate 25 35.833 137.633 8.4 mg In Empty Bag 1 bag @ 1 MG/HR 2 mls/hr IV .Q24H NAIF Rx#:[id number] Insulin Regular 100 unit 23.062 26.429 9.679 In Sodium Chloride 0.9% 100 ml @ Per Protocol IV .Q0M NAIF Rx#:[id number] Lactated Ringers 1,000 ml 300 50 @ 20 mls/hr IV .Q24H NAIF Rx#:[id number] propofoL 1,000 mg In 70.770 Empty Bag 1 bag @ Titrate IV .Q0M NAIF Rx#: [id number] Oral 350 Output: Chest Tube Drainage 500 320 110 Pleural Catheter 230 90 60 Bilateral Pleural Catheter 270 230 50 Mediastinal Drainage 20 20 Left Arm 20 20 Urine 815 645 193 Other: Voiding Method Indwelling Catheter Indwelling Catheter Indwelling Catheter ABP, PAP, CO, CI - Last Documented Arterial Blood Pressure 157/47 Pulmonary Artery Pressure 33/8 Cardiac Output 5.8 Cardiac Index 2.9 - Exam CONSTITUTIONAL: Reveals 73-year-old white male in no distress, on room air. RESPIRATORY: clear bilaterally no rhonchi no wheezes, symmetrical chest expansion CARDIOVASCULAR: Normal S1-S2, no S3 gallop, positive pericardial rub GASTROINTESTINAL: Soft nontender no megaly no rebound no guarding INTEGUMENTARY: No rashes. NEUROLOGIC: Alert oriented x 3 no gross focal deficit MUSKULOSKELETAL: No deformities no limitation range of motion PSYCHIATRIC: Normal mood affect and no mental status examination - Labs CBC & Chem 7: 02/08/24 05:16 02/08/24 05:15 Labs: Abnormal Lab Results - Last 24 Hours (Table) 01/27/24 02/07/24 02/07/24 Range/Units 14:54 15:00 15:46 WBC (3.8-10.6) k/uL RBC (4.30-5.90) m/uL Hgb (13.0-17.5) gm/dL Hct (39.0-53.0) % Neutrophils # (1.3-7.7) k/uL Lymphocytes # (1.0-4.8) k/uL ABG pH (7.35-7.45) ABG pCO2 (35-45) mmHg ABG pO2 (83-108) mmHg ABG Total CO2 (19-24) mmol/L ABG O2 Saturation (94-97) % Sodium (137-145) mmol/L Glucose (74-99) mg/dL POC Glucose (mg/dL) 187 H 198 H (70-110) mg/dL Alkaline Phosphatase (38-126) U/L Total Protein (6.3-8.2) g/dL Albumin (3.5-5.0) g/dL Crossmatch See Detail 02/07/24 02/07/24 02/07/24 Range/Units 15:47 16:35 17:16 WBC (3.8-10.6) k/uL RBC 3.18 L (4.30-5.90) m/uL Hgb 9.6 L (13.0-17.5) gm/dL Hct 28.1 L (39.0-53.0) % Neutrophils # 8.5 H (1.3-7.7) k/uL Lymphocytes # (1.0-4.8) k/uL ABG pH 7.30 L (7.35-7.45) ABG pCO2 47 H (35-45) mmHg ABG pO2 112 H (83-108) mmHg ABG Total CO2 25 H (19-24) mmol/L ABG O2 Saturation 98.6 H (94-97) % Sodium (137-145) mmol/L Glucose (74-99) mg/dL POC Glucose (mg/dL) 161 H (70-110) mg/dL Alkaline Phosphatase (38-126) U/L Total Protein (6.3-8.2) g/dL Albumin (3.5-5.0) g/dL Crossmatch 02/07/24 02/07/24 02/07/24 Range/Units 18:16 18:41 18:41 WBC 14.2 H (3.8-10.6) k/uL RBC 3.41 L (4.30-5.90) m/uL Hgb 10.1 L (13.0-17.5) gm/dL Hct 30.5 L (39.0-53.0) % Neutrophils # 12.0 H (1.3-7.7) k/uL Lymphocytes # (1.0-4.8) k/uL ABG pH (7.35-7.45) ABG pCO2 (35-45) mmHg ABG pO2 (83-108) mmHg ABG Total CO2 (19-24) mmol/L ABG O2 Saturation (94-97) % Sodium (137-145) mmol/L Glucose (74-99) mg/dL POC Glucose (mg/dL) 144 H 150 H (70-110) mg/dL Alkaline Phosphatase (38-126) U/L Total Protein (6.3-8.2) g/dL Albumin (3.5-5.0) g/dL Crossmatch 02/07/24 02/07/24 02/07/24 Range/Units 20:05 21:56 23:15 WBC (3.8-10.6) k/uL RBC (4.30-5.90) m/uL Hgb (13.0-17.5) gm/dL Hct (39.0-53.0) % Neutrophils # (1.3-7.7) k/uL Lymphocytes # (1.0-4.8) k/uL ABG pH (7.35-7.45) ABG pCO2 (35-45) mmHg ABG pO2 (83-108) mmHg ABG Total CO2 (19-24) mmol/L ABG O2 Saturation (94-97) % Sodium (137-145) mmol/L Glucose (74-99) mg/dL POC Glucose (mg/dL) 125 H 130 H 141 H (70-110) mg/dL Alkaline Phosphatase (38-126) U/L Total Protein (6.3-8.2) g/dL Albumin (3.5-5.0) g/dL Crossmatch 02/08/24 02/08/24 02/08/24 Range/Units 00:06 02:59 04:20 WBC (3.8-10.6) k/uL RBC (4.30-5.90) m/uL Hgb (13.0-17.5) gm/dL Hct (39.0-53.0) % Neutrophils # (1.3-7.7) k/uL Lymphocytes # (1.0-4.8) k/uL ABG pH (7.35-7.45) ABG pCO2 (35-45) mmHg ABG pO2 (83-108) mmHg ABG Total CO2 (19-24) mmol/L ABG O2 Saturation (94-97) % Sodium (137-145) mmol/L Glucose (74-99) mg/dL POC Glucose (mg/dL) 131 H 130 H 141 H (70-110) mg/dL Alkaline Phosphatase (38-126) U/L Total Protein (6.3-8.2) g/dL Albumin (3.5-5.0) g/dL Crossmatch 02/08/24 02/08/24 02/08/24 Range/Units 05:15 05:15 05:16 WBC (3.8-10.6) k/uL RBC 3.45 L (4.30-5.90) m/uL Hgb 10.1 L (13.0-17.5) gm/dL Hct 30.8 L (39.0-53.0) % Neutrophils # 9.0 H (1.3-7.7) k/uL Lymphocytes # 0.5 L (1.0-4.8) k/uL ABG pH (7.35-7.45) ABG pCO2 (35-45) mmHg ABG pO2 (83-108) mmHg ABG Total CO2 (19-24) mmol/L ABG O2 Saturation (94-97) % Sodium 132 L (137-145) mmol/L Glucose 108 H (74-99) mg/dL POC Glucose (mg/dL) 120 H (70-110) mg/dL Alkaline Phosphatase 33 L (38-126) U/L Total Protein 5.4 L (6.3-8.2) g/dL Albumin 3.2 L (3.5-5.0) g/dL Crossmatch 02/08/24 02/08/24 02/08/24 Range/Units 09:06 11:40 13:59 WBC (3.8-10.6) k/uL RBC (4.30-5.90) m/uL Hgb (13.0-17.5) gm/dL Hct (39.0-53.0) % Neutrophils # (1.3-7.7) k/uL Lymphocytes # (1.0-4.8) k/uL ABG pH (7.35-7.45) ABG pCO2 (35-45) mmHg ABG pO2 (83-108) mmHg ABG Total CO2 (19-24) mmol/L ABG O2 Saturation (94-97) % Sodium (137-145) mmol/L Glucose (74-99) mg/dL POC Glucose (mg/dL) 142 H 127 H 126 H (70-110) mg/dL Alkaline Phosphatase (38-126) U/L Total Protein (6.3-8.2) g/dL Albumin (3.5-5.0) g/dL Crossmatch Assessment and Plan Assessment: Impression: Status post off-pump CABG with left main disease, status post three-vessel CABG postoperative day #1 Dyslipidemia Type 2 diabetes Benign essential hypertension Peripheral vessel occlusive disease Ex-smoker Mild COPD previous FEV1 is 67% Chronic marijuana use Recommendation: Continue present supportive care measures Continue maximal medical therapy including statin Plavix beta-meme and aspirin Continue incentive spirometry Early ambulation GI DVT prophylaxis Continue bronchodilators Continue insulin Continue daily labs and daily x-rays of the chest Discontinue unnecessary lines and catheters Will continue to follow Time with Patient: Less than 30
[2024-02-08 15:35] LABS: Glucose,Whole Blood 130 mg/dL (70-110)
[2024-02-08 16:49] LABS: Glucose,Whole Blood 125 mg/dL (70-110)
[2024-02-08] MEDS: METOPROLOL TARTRATE 25 MG TAB PO STA (17:37)
[2024-02-08 18:34] LABS: Glucose,Whole Blood 145 mg/dL (70-110)
[2024-02-08] MEDS: METOPROLOL TARTRATE 50 MG TAB PO SCH (20:23)
[2024-02-08] MEDS: SENNOSIDES-DOCUSATE SODIUM 1 EACH TAB PO SCH (20:23)
[2024-02-08 20:28] LABS: Glucose,Whole Blood 148 mg/dL (70-110)
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
[2024-02-08 22:11] LABS: Glucose,Whole Blood 113 mg/dL (70-110)
[2024-02-09 00:12] LABS: Glucose,Whole Blood 126 mg/dL (70-110)
[2024-02-09 02:07] LABS: Glucose,Whole Blood 127 mg/dL (70-110)
[2024-02-09 04:04] LABS: Glucose,Whole Blood 118 mg/dL (70-110)
[2024-02-09 05:26] LABS: Basophils % (A) 0 %; Eosinophils % (A) 0 %; HCT 28.9 % (39.0-53.0); HGB 9.6 gm/dL (13.0-17.5); Lymphocytes # (A) 0.9 k/uL (1.0-4.8); Lymphocytes % (A) 7 %; MCH 29.4 pg (25.0-35.0); MCHC 33.2 g/dL (31.0-37.0); MCV 88.5 fL (80.0-100.0); Mean Platelet Volume 9.7; Monocytes # (A) 0.9 k/uL (0-1.0); Monocytes % (A) 7 %; Neutrophils # (A) 11.1 k/uL (1.3-7.7); Neutrophils % (A) 84 %; Platelet Count 168 k/uL (150-450); RBC 3.27 m/uL (4.30-5.90); WBC 13.1 k/uL (3.8-10.6)
[2024-02-09 05:30] LABS: Ionized Calcium 4.9 mg/dL (4.5-5.3)
[2024-02-09 05:39] LABS: ALT 10 U/L (4-49); AST 22 U/L (17-59); African American GFR (CKD) >90 (>60 ml/min/1.73 sqM); Albumin 2.8 g/dL (3.5-5.0); Alkaline Phosphatase 53 U/L (38-126); Anion Gap 5 mmol/L; Blood Urea Nitrogen 17 mg/dL (9-20); Calcium 8.6 mg/dL (8.4-10.2); Carbon Dioxide 23 mmol/L (22-30); Chloride 103 mmol/L (98-107); Glucose 106 mg/dL (74-99); Non-African American GFR(CKD) 88 (>60 ml/min/1.73 sqM); Potassium 3.9 mmol/L (3.5-5.1); Sodium 131 mmol/L (137-145); Total Bilirubin 0.7 mg/dL (0.2-1.3); Total Protein 5.1 g/dL (6.3-8.2)
[2024-02-09 06:03] LABS: Glucose,Whole Blood 119 mg/dL (70-110)
[2024-02-09] MEDS: POTASSIUM CHLORIDE ER 20 MEQ TAB.ER PO SCH (06:07)
[2024-02-09] MEDS: PANTOPRAZOLE 40 MG TABLET PO SCH (06:07)
--- NOTE | 2024-02-09 06:17 | P.PN ---
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 Chou on January 27, 2024 with finding severe disease involving the distal left main coronary artery with severe disease involving the proximal to mid LAD with severe blockage of the left circumflex and severe lesion involving the proximal to mid RCA. The patient was referred to cardiothoracic surgeon at that point seen and evaluated and plan for surgery which was done today with three-vessel bypass. Patient ended up in the ICU on mechanical ventilation for management after surgery. Was able to extubate patient after few hours successfully is lying in bed pain-free hemodynamically stable and doing well. 02/08/2024: The patient is doing well sitting in the chair was taken off mechanical ventilation last night successfully doing well pain is well-co ntrolled, had mild anemia today with hemoglobin down to 10.1 he is still on amiodarone there is no sign of A-fib. Drainage tube are draining minimum serous fluid. The patient is hemodynamically stable at this point does not require any vasopressor. REVIEW OF SYSTEMS: CONSTITUTIONAL: Well-developed no acute respiratory distress. Postextubation and off ventilator. EYES: No icterus sclerae, no conjunctivitis. EARS, NOSE, MOUTH, THROAT, and FACE: No sore throat, lymphadenopathy, carotid bruits or deformity. RESPIRATORY: Positive slight shortness of breath no cough or wheezes. CARDIOVASCULAR: Incision looks fine positive chest discomfort with irritation mild PND and orthopnea slight palpitation. GASTROINTESTINAL: No Abd pain, Nausea or vomiting, no Diarrhea or constipation, No GI Bleed, no distention or masses. GENITOURINARY: Negative for Hematuria or UTI, no kidney stones. INTEGUMENT/BREAST: Negative for any muscular injury with mild osteoarthritis.. HEMATOLOGIC/LYMPHATIC: Negative for bleed or purpura. MUSCULOSKELTAL: Negative for Myalgia or arthralgia. NEURLOGICAL: No LOC, Sz or syncope, blurred vision dizziness or abnormality.. BEHAVIORAL/PSYCH: Negative. ENDOCRINE: Negative. PHYSICAL EXAMINATION: General Appearance: Alert, cooperative, no distress, appears stated age. Neck HEENT: Supple, no lymphadenopathy, no thyroid enlargement, no carotid bruits. Lungs: Decreased breath sound the bases positive fine rhonchi no crackles. Chest Wall: Incision on the chest wall with no induration or bleeding at this point slight tenderness and discomfort still have to chest tube. Heart: Regular rate and rhythm, S1, S2 normal, positive S3, no murmur. Back: Symmetric, no curvature, ROM normal, no CVA tenderness. Abdomen: Soft, non-tender, bowel sounds active all four quadrants, no masses, no organomegaly. Extremities: Extremities normal, atraumatic, no cyanosis or edema. Pulses: 2+ and symmetric. Skin: Skin color, texture, tugor normal, no rashes or lesions. Neurologic: Alert oriented x3 cranial nerves II through XII intact, no motor deficit, no abnormal balance or gait. ASSESSMENT AND PLAN: _Severe triple-vessel coronary artery post three-vessel graft bypass with PAGE to the LAD, radial artery to the first diagonal and SVG to the RCA with left atrial appendage clipping. Stable with no complications so far advanced medical management and start PT. _CAD with multiple coronary artery disease: Post triple bypass surgery has done well so far. _Type 2 diabetes: Continue Accu-Chek with short acting insulin for sliding scales patient will be back on his oral meds as soon as he started doing better with diet at this point to replace his pioglitazone with Jardiance or Tradjenta will be a better choice try to avoid sulfonylurea probably will end up on Jardiance 25 mg and metformin 1000 mg twice a day. _Arrhythmia: With no signs of A-fib Was on amiodarone starting after surgery IV will continue to watch for any arrhythmia or A-fib. _Chronic lower back pain and chronic pain syndrome and has been off narcotic is doing only Flexeril along with Tylenol. _Hyperlipidemia: Resume rosuvastatin. _BPH with no sign of obstruction resume Flomax. _Hypertension continue amlodipine 5 mg daily required at some point. _Mild electrolyte imbalance, continue replacement hydration for now. _Mild reactive airway: Continue albuterol/ipratropium up to 4 times a day. Prognosis: Very good. Objective - Vital Signs Vital signs: Vital Signs Temp 99.7 F H 02/09/24 04:00 Pulse 83 02/09/24 06:00 Resp 17 02/09/24 06:00 BP 155/68 02/09/24 05:30 Pulse Ox 92 L 02/09/24 06:00 FiO2 40 02/07/24 16:50 Intake & Output 02/08/24 02/08/24 02/09/24 06:59 18:59 06:59 Intake Total 7181.742 0549.079 438.059 Output Total 985 498 835 Balance 237.062 968.079 -396.941 Weight 84 kg 84 kg Intake: IV 1008 628 422 0.9ns pressure bag 108 78 72 ACETAMINOPHEN IV (For NPO 100 ) 1,000 mg In Empty Bag 1 bag @ 400 mls/hr IVPB Q6HR [facility] Rx#:[id number] CO/CI 160 20 Lactated Ringers 1,000 ml 540 430 350 @ 20 mls/hr IV .Q24H [facility] Rx#:[id number] Magnesium Sulfate-D5w Pmx 100 1 gm In Dextrose/Water 1 100ml.bag @ 100 mls/hr IVPB ONCE ONE Rx#: [id number] ceFAZolin 2 gm In Sodium 100 Chloride 0.9% 50 ml @ 100 mls/hr IVPB Q8HR [facility] Rx# :[id number] Intake, IV Titration 214.062 18.079 16.059 Amount Clevidipine Butyrate 25 137.633 8.4 mg In Empty Bag 1 bag @ 1 MG/HR 2 mls/hr IV .Q24H [facility] Rx#:[id number] Insulin Regular 100 unit 26.429 9.679 16.059 In Sodium Chloride 0.9% 100 ml @ Per Protocol IV .Q0M [facility] Rx#:[id number] Lactated Ringers 1,000 ml 50 @ 20 mls/hr IV .Q24H NA[facility] Rx#:[id number] Oral 820 Output: Chest Tube Drainage 320 190 220 Pleural Catheter 90 90 110 Bilateral Pleural Catheter 230 100 110 Mediastinal Drainage 20 20 Left Arm 20 20 Urine 645 288 615 Other: Voiding Method Indwelling Catheter Indwelling Catheter Indwelling Catheter ABP, PAP, CO, CI - Last Documented Arterial Blood Pressure 179/51 Pulmonary Artery Pressure 33/8 Cardiac Output 5.8 Cardiac Index 2.9 - Labs CBC & Chem 7: 05/08/24 05:15 02/09/24 05:15 Labs: Abnormal Lab Results - Last 24 Hours (Table) 02/08/24 02/08/24 02/08/24 Range/Units 09:06 11:40 13:59 WBC (3.8-10.6) k/uL RBC (4.30-5.90) m/uL Hgb (13.0-17.5) gm/dL Hct (39.0-53.0) % Neutrophils # (1.3-7.7) k/uL Lymphocytes # (1.0-4.8) k/uL Sodium (137-145) mmol/L Glucose (74-99) mg/dL POC Glucose (mg/dL) 142 H 127 H 126 H (70-110) mg/dL Total Protein (6.3-8.2) g/dL Albumin (3.5-5.0) g/dL 02/08/24 02/08/24 02/08/24 Range/Units 15:33 16:47 18:33 WBC (3.8-10.6) k/uL RBC (4.30-5.90) m/uL Hgb (13.0-17.5) gm/dL Hct (39.0-53.0) % Neutrophils # (1.3-7.7) k/uL Lymphocytes # (1.0-4.8) k/uL Sodium (137-145) mmol/L Glucose (74-99) mg/dL POC Glucose (mg/dL) 130 H 125 H 145 H (70-110) mg/dL Total Protein (6.3-8.2) g/dL Albumin (3.5-5.0) g/dL 02/08/24 02/08/24 02/09/24 Range/Units 20:27 22:10 00:10 WBC (3.8-10.6) k/uL RBC (4.30-5.90) m/uL Hgb (13.0-17.5) gm/dL Hct (39.0-53.0) % Neutrophils # (1.3-7.7) k/uL Lymphocytes # (1.0-4.8) k/uL Sodium (137-145) mmol/L Glucose (74-99) mg/dL POC Glucose (mg/dL) 148 H 113 H 126 H (70-110) mg/dL Total Protein (6.3-8.2) g/dL Albumin (3.5-5.0) g/dL 02/09/24 02/09/24 02/09/24 Range/Units 02:06 04:02 05:15 WBC 13.1 H (3.8-10.6) k/uL RBC 3.27 L (4.30-5.90) m/uL Hgb 9.6 L (13.0-17.5) gm/dL Hct 28.9 L (39.0-53.0) % Neutrophils # 11.1 H (1.3-7.7) k/uL Lymphocytes # 0.9 L (1.0-4.8) k/uL Sodium (137-145) mmol/L Glucose (74-99) mg/dL POC Glucose (mg/dL) 127 H 118 H (70-110) mg/dL Total Protein (6.3-8.2) g/dL Albumin (3.5-5.0) g/dL 02/09/24 02/09/24 Range/Units 05:15 05:51 WBC (3.8-10.6) k/uL RBC (4.30-5.90) m/uL Hgb (13.0-17.5) gm/dL Hct (39.0-53.0) % Neutrophils # (1.3-7.7) k/uL Lymphocytes # (1.0-4.8) k/uL Sodium 131 L (137-145) mmol/L Glucose 106 H (74-99) mg/dL POC Glucose (mg/dL) 119 H (70-110) mg/dL Total Protein 5.1 L (6.3-8.2) g/dL Albumin 2.8 L (3.5-5.0) g/dL
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
[2024-02-09] MEDS: DAPAGLIFLOZIN PROPANEDIOL 5 MG TABLET PO SCH (08:28)
--- NOTE | 2024-02-09 09:35 | XR ---
EXAMINATION TYPE: XR chest 1V portable DATE OF EXAM: 02/09/2024 COMPARISON: 02/08/2024 HISTORY: Preop TECHNIQUE: Single frontal view of the chest is obtained. FINDINGS: Mediastinal drain and left-sided chest tube. Post mediastinal sternotomy. Atrial appendage clipping. Small bilateral pleural effusions and basilar consolidation. No pneumothorax. Osseous stru ctures are stable. IMPRESSION: Bilateral consolidation and small effusion stable.
[2024-02-09 11:33] LABS: Glucose,Whole Blood 132 mg/dL (70-110)
--- NOTE | 2024-02-09 12:09 | P.PN ---
Subjective Progress Note Date: 02/09/24 Principal diagnosis: Status post CABG, postoperative day #2 This is a 73-year-old male patient with a known history of peripheral vascular disease, hyperlipidemia, hypertension, diabetes mellitus, coronary artery disease. He was brought in today electively for an off-pump coronary artery bypass grafting x 3. He received a PAGE to the LAD, left radial artery to the first diagonal branch, reverse saphenous vein graft from aorta to the distal right coronary artery. He had undergone left atrial appendage ligation and clipping. He is seen today in the postoperative period in the intensive care unit. He is currently intubated and on the mechanical ventilator. Current se ttings are assist-control mode at a rate of 14, tidal volume 450, FiO2 40% and a PEEP of 5. Arterial blood gases revealed a PaO2 greater than 400, pCO2 of 36 and a pH of 7.41. That was on 100% FiO2. White count 8.1. Hemoglobin 9.3. Platelets 139. Sodium 134. Potassium 4.3. Bicarb 21. BUN 16. Creatinine 0.71. Glucose 143. AST 14. ALT 9. Albumin 3.1. His cardiac output is 7.3. Cardiac index 3.7. PA pressures 32/16. CVP of 9. He has a right IJ [place]-Faviola catheter in place. Right radial arterial line in place. He is currently on Cleviprex at 5 mg/h. Insulin at 6 units/h lactated Ringer's at 50 MLS per hour and a nitroglycerin drip at 10 mcg/min. Chest x-ray reveals endotracheal tube above the lavonne. Nasogastric tube in position. [place]-Faviola catheter in position. Bilateral thoracotomy tubes with mediastinal tubes as well. He has been initiated on bronchodilators. Patient was reevaluated today on 02/08/2024, patient is status post off pump coronary artery bypass grafting x 3, left internal thoracic artery (in-situ) to left anterior descending coronary artery, radial artery from aorta to 1st diagonal artery, reverse saphenous vein from aorta to distal right coronary artery postoperative day #1. Patient is doing well, he was extubated last night at 16: 52, and his overnight was basically uneventful, this morning the patient is relatively asymptomatic, on room air, does not seem to be in any distress. Remains on insulin at 2.4 units/h, cardiac output is 5.8 cardiac index is 2.9. Patient is hemodynamically stable, not requiring any inotropes or any pressors. Still attempting incentive spirometry, some of his lines and tubes may be removed today. Chest x-ray showed no evidence of congestive heart failure, he does have left basilar atelectasis and possibly a small tiny pleural effusionCBC is relatively normal., Basic metabolic profile is unremarkable, and he has a relatively normal renal profile Patient was seen and examined today on 02/09/2024, patient is sitting up in a recliner in the intensive care unit, hemodynamically stable, not in any dist ress, not requiring any pressors or any inotropes. On 3 L nasal cannula, O2 saturation is adequate. Patient has no specific complaints, achieving about 1000 cc via incentive spirometry, has been ambulating with assistance in the hallway. X-ray continues to show minimal left lower lobe atelectasis, hence the patient was encouraged to use his incentive spirometry more and more.WBC count is 13.1 hemoglobin 9.6, sodium 131 potassium 3.9 chloride 103 BUN 17 creatinine 0.82 Objective - Vital Signs Vital signs: Vital Signs Temp 98.9 F 02/09/24 08:00 Pulse 72 02/09/24 11:12 Resp 22 02/09/24 11:00 BP 129/68 02/09/24 11:00 Pulse Ox 93 L 02/09/24 10:30 FiO2 40 02/07/24 16:50 Intake & Output 02/08/24 02/09/24 02/09/24 18:59 06:59 18:59 Intake Total 1466.079 438.059 104 Output Total 498 835 343 Balance 968.079 -396.941 -239 Weight 84 kg 84.9 kg Intake: IV 628 422 104 0.9ns pressure bag 78 72 24 CO/CI 20 Lactated Ringers 1,000 ml 430 350 80 @ 20 mls/hr IV .Q24H [facility] Rx#:[id number] Magnesium Sulfate-D5w Pmx 100 1 gm In Dextrose/Water 1 100ml.bag @ 100 mls/hr IVPB ONCE ONE Rx#: [id number] Intake, IV Titration 18.079 16.059 Amount Clevidipine Butyrate 25 8.4 mg In Empty Bag 1 bag @ 1 MG/HR 2 mls/hr IV .Q24H [facility] Rx#:[id number] Insulin Regular 100 unit 9.679 16.059 In Sodium Chloride 0.9% 100 ml @ Per Protocol IV .Q0M [facility] Rx#:[id number] Oral 820 Output: Chest Tube Drainage 190 220 30 Pleural Catheter 90 110 20 Bilateral Pleural Catheter 100 110 10 Mediastinal Drainage 20 Left Arm 20 Urine 288 615 313 Other: Voiding Method Indwelling Catheter Indwelling Catheter Indwelling Catheter ABP, PAP, CO, CI - Last Documented Arterial Blood Pressure 133/62 Pulmonary Artery Pressure 33/8 Cardiac Output 5.8 Cardiac Index 2.9 - Exam CONSTITUTIONAL: Reveals 73-year-old white male in no distress, on room air. RESPIRATORY: clear bilaterally no rhonchi no wheezes, symmetrical chest expansion CARDIOVASCULAR: Normal S1-S2, no S3 gallop, positive pericardial rub GASTROINTESTINAL: Soft nontender no megaly no rebound no guarding INTEGUMENTARY: No rashes. NEUROLOGIC: Alert oriented x 3 no gross focal deficit MUSKULOSKELETAL: No deformities no limitation range of motion PSYCHIATRIC: Normal mood affect and no mental status examination - Labs CBC & Chem 7: 02/09/24 05:15 02/09/24 05:15 Labs: Abnormal Lab Results - Last 24 Hours (Table) 02/08/24 02/08/24 02/08/24 Range/Units 13:59 15:33 16:47 WBC (3.8-10.6) k/uL RBC (4.30-5.90) m/uL Hgb (13.0-17.5) gm/dL Hct (39.0-53.0) % Neutrophils # (1.3-7.7) k/uL Lymphocytes # (1.0-4.8) k/uL Sodium (137-145) mmol/L Glucose (74-99) mg/dL POC Glucose (mg/dL) 126 H 130 H 125 H (70-110) mg/dL Total Protein (6.3-8.2) g/dL Albumin (3.5-5.0) g/dL 02/08/24 02/08/24 02/08/24 Range/Units 18:33 20:27 22:10 WBC (3.8-10.6) k/uL RBC (4.30-5.90) m/uL Hgb (13.0-17.5) gm/dL Hct (39.0-53.0) % Neutrophils # (1.3-7.7) k/uL Lymphocytes # (1.0-4.8) k/uL Sodium (137-145) mmol/L Glucose (74-99) mg/dL POC Glucose (mg/dL) 145 H 148 H 113 H (70-110) mg/dL Total Protein (6.3-8.2) g/dL Albumin (3.5-5.0) g/dL 02/09/24 02/09/24 02/09/24 Range/Units 00:10 02:06 04:02 WBC (3.8-10.6) k/uL RBC (4.30-5.90) m/uL Hgb (13.0-17.5) gm/dL Hct (39.0-53.0) % Neutrophils # (1.3-7.7) k/uL Lymphocytes # (1.0-4.8) k/uL Sodium (137-145) mmol/L Glucose (74-99) mg/dL POC Glucose (mg/dL) 126 H 127 H 118 H (70-110) mg/dL Total Protein (6.3-8.2) g/dL Albumin (3.5-5.0) g/dL 02/09/24 02/09/24 02/09/24 Range/Units 05:15 05:15 05:51 WBC 13.1 H (3.8-10.6) k/uL RBC 3.27 L (4.30-5.90) m/uL Hgb 9.6 L (13.0-17.5) gm/dL Hct 28.9 L (39.0-53.0) % Neutrophils # 11.1 H (1.3-7.7) k/uL Lymphocytes # 0.9 L (1.0-4.8) k/uL Sodium 131 L (137-145) mmol/L Glucose 106 H (74-99) mg/dL POC Glucose (mg/dL) 119 H (70-110) mg/dL Total Protein 5.1 L (6.3-8.2) g/dL Albumin 2.8 L (3.5-5.0) g/dL 02/09/24 Range/Units 11:32 WBC (3.8-10.6) k/uL RBC (4.30-5.90) m/uL Hgb (13.0-17.5) gm/dL Hct (39.0-53.0) % Neutrophils # (1.3-7.7) k/uL Lymphocytes # (1.0-4.8) k/uL Sodium (137-145) mmol/L Glucose (74-99) mg/dL POC Glucose (mg/dL) 132 H (70-110) mg/dL Total Protein (6.3-8.2) g/dL Albumin (3.5-5.0) g/dL Assessment and Plan Assessment: Impression: Status post off-pump CABG with left main disease, status post three-vessel CABG postoperative day #2 Dyslipidemia Type 2 diabetes Benign essential hypertension Peripheral vessel occlusive disease Ex-smoker Mild COPD previous FEV1 is 67% Chronic marijuana use Recommendation: Continue present supportive care measures Continue maximal medical therapy including statin Plavix beta-meme and aspirin Continue incentive spirometry Early ambulation GI DVT prophylaxis Continue bronchodilators Continue insulin Will continue to follow Time with Patient: Less than 30
--- NOTE | 2024-02-09 13:10 | CDI ---
Documentation Clarification Form Date: 02/09/2024 12:15:37 PM From: Charisse Iniguez RN CCDS Phone: [phone] Admit Date: 02/07/2024 05:34:00 AM Patient Name: Esteban Gardner Visit Number: [id number] Discharge Date: ATTENTION: The Clinical Documentation Specialists (CDI) and [facility] Coding Staff appreciate your assistance in clarifying documentation. Please respond to the clarification below the line at the bottom and electronically sign. The CDI & [facility] Coding staff will review the response and follow-up if needed. Please note: Queries are made part of the Legal Health Record. If you have any questions, please contact the author of this message via ITS. Dr. Radha Gaspar Mild respiratory failure is documented 02/06, Medicine consult which may lack sufficient clinical evidence/support in the medical record. Additional clarification is requested. History/Risk Factors: 73 year old male presents to [facility] for elective CABG. Medical history: COPD, DM, HTN and Atherosclerotic heart disease. Pulmonary consult, 02/06. Clinical Indicators: 02/06 16:50 SpO2 99% Mechanical Ventilator FiO2 40 02/06 17:00 SpO2 100% 5L nasal cannula Medicine consult 02/06: Mild respiratory failure requiring short term mechanical ventilation Pulmonary consult 02/06: Intubation and mechanical ventilatory support as an expected part of the surgery, we will plan for early extubation protocol. Treatment: 02/06 17:00 5L nasal cannula Please clarify if Respiratory Failure is a valid diagnosis? [ ] Yes, Respiratory failure is present as evidence by (additional clinical support): [ x ] No, Respiratory failure is ruled out [ ] Other (please specify diagnosis) [ ] Unable to determine (Template Last Revised: December 2020) MTDD
[2024-02-09] MEDS: amLODIPine 10 MG TAB PO SCH (13:42)
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
[2024-02-09 16:45] LABS: Glucose,Whole Blood 181 mg/dL (70-110)
[2024-02-09] MEDS: METOPROLOL TARTRATE 50 MG TAB PO SCH (17:49)
--- NOTE | 2024-02-10 06:01 | P.PN ---
Subjective Progress Note Date: 02/09/24 HISTORY OF PRESENT ILLNESS: 73-year-old office patient with active medical history of chronic pain syndrome, type 2 diabetes, coronary artery disease, hypertension, hyperlipidemia, chronic lower back pain, chronic neuropathy, history of tinnitus and mild hearing loss, who was on chronic pain management, he was having slightly with worsening symptoms of shortness of breath and slight chest pain ended up being referred to have cardiac testing positive stress test went to the [employer] Dr. Chou on January 27, 2024 with finding severe disease involving the distal left main coronary artery with severe disease involving the proximal to mid LAD with severe blockage of the left circumflex and severe lesion involving the proximal to mid RCA. The patient was referred to cardiothoracic surgeon at that point seen and evaluated and plan for surgery which was done today with three-vessel bypass. Patient ended up in the ICU on mechanical ventilation for management after surgery. Was able to extubate patient after few hours successfully is lying in bed pain-free hemodynamically stable and doing well. 02/08/2024: The patient is doing well sitting in the chair was taken off mechanical ventilation last night successfully doing well pain is well-co ntrolled, had mild anemia today with hemoglobin down to 10.1 he is still on amiodarone there is no sign of A-fib. Drainage tube are draining minimum serous fluid. The patient is hemodynamically stable at this point does not require any vasopressor. 02/09/2024: Patient remain in the ICU Sitting in his recliner, very comfortable, still have 2 chest tubes in. Blood pressure is well-controlled at 130/67 is not on any vasopressor. Blood sugars running in the low 100s still on insulin drip 0.4 units, will stop insulin start patient on Farxiga 5 mg an hour and continue Accu-Cheks sliding scales low coverage and in 24 hours we will try to wrap it up for longer acting insulin if needed. For medical management remain on statin, beta-meme and aspirin. Patient is not having any A-fib still on amiodarone. REVIEW OF SYSTEMS: CONSTITUTIONAL: Well-developed no acute respiratory distress. Postextubation and off ventilator. EYES: No icterus sclerae, no conjunctivitis. EARS, NOSE, MOUTH, THROAT, and FACE: No sore throat, lymphadenopathy, carotid bruits or deformity. RESPIRATORY: Positive slight shortness of breath no cough or wheezes. CARDIOVASCULAR: Incision looks fine positive chest discomfort with irritation mild PND and orthopnea slight palpitation. GASTROINTESTINAL: No Abd pain, Nausea or vomiting, no Diarrhea or constipation, No GI Bleed, no distention or masses. GENITOURINARY: Negative for Hematuria or UTI, no kidney stones. INTEGUMENT/BREAST: Negative for any muscular injury with mild osteoarthritis.. HEMATOLOGIC/LYMPHATIC: Negative for bleed or purpura. MUSCULOSKELTAL: Negative for Myalgia or arthralgia. NEURLOGICAL: No LOC, Sz or syncope, blurred vision dizziness or abnormality.. BEHAVIORAL/PSYCH: Negative. ENDOCRINE: Negative. PHYSICAL EXAMINATION: General Appearance: Alert, cooperative, no distress, appears stated age. Neck HEENT: Supple, no lymphadenopathy, no thyroid enlargement, no carotid bruit s. Lungs: Decreased breath sound the bases positive fine rhonchi no crackles. Chest Wall: Incision on the chest wall with no induration or bleeding at this point slight tenderness and discomfort still have to chest tube. Heart: Regular rate and rhythm, S1, S2 normal, positive S3, no murmur. Back: Symmetric, no curvature, ROM normal, no CVA tenderness. Abdomen: Soft, non-tender, bowel sounds active all four quadrants, no masses, no organomegaly. Extremities: Extremities normal, atraumatic, no cyanosis or edema. Pulses: 2+ and symmetric. Skin: Skin color, texture, tugor normal, no rashes or lesions. Neurologic: Alert oriented x3 cranial nerves II through XII intact, no motor deficit, no abnormal balance or gait. ASSESSMENT AND PLAN: _Severe triple-vessel coronary artery post three-vessel graft bypass with PAGE to the LAD, radial artery to the first diagonal and SVG to the RCA with left atrial appendage clipping. Stable with no complications so far advanced medical management and start PT. _CAD with multiple coronary artery disease: Post triple bypass surgery has done well so far. _Type 2 diabetes: Patient be taking off insulin drip start when he leaves the hospital he will be on Jardiance 10 mg a day, Accu-Chek with sliding scale coverage will be done. _Arrhythmia: With no signs of A-fib Was on amiodarone starting after surgery IV will continue to watch for any arrhythmia or A-fib. _Chronic lower back pain and chronic pain syndrome and has been off narcotic is doing only Flexeril along with Tylenol. _Hyperlipidemia: Will switch to atorvastatin 40 mg nightly in the hospital. _BPH with no sign of obstruction resume Flomax. _Hypertension: Continue amlodipine 10 mg a day, metoprolol tartrate 50 mg every 8 hours and still on hydralazine IV push as needed. _Mild electrolyte imbalance much better so far with electrolyte none. _Mild reactive airway: Continue albuterol/ipratropium up to 4 times a day. Prognosis: Very good. Objective - Vital Signs Vital signs: Vital Signs Temp 99.7 F H 02/09/24 04:00 Pulse 83 02/09/24 06:00 Resp 17 02/09/24 06:00 BP 155/68 02/09/24 05:30 Pulse Ox 92 L 02/09/24 06:00 FiO2 40 02/07/24 16:50 Intake & Output 02/08/24 02/08/24 02/09/24 06:59 18:59 06:59 Intake Total 5288.429 8663.079 438.059 Output Total 985 498 835 Balance 237.062 968.079 -396.941 Weight 84 kg 84 kg Intake: IV 1008 628 422 0.9ns pressure bag 108 78 72 ACETAMINOPHEN IV (For NPO 100 ) 1,000 mg In Empty Bag 1 bag @ 400 mls/hr IVPB Q6HR [facility] Rx#:[id number] CO/CI 160 20 Lactated Ringers 1,000 ml 540 430 350 @ 20 mls/hr IV .Q24H [facility] Rx#:[id number] Magnesium Sulfate-D5w Pmx 100 1 gm In Dextrose/Water 1 100ml.bag @ 100 mls/hr IVPB ONCE ONE Rx#: [id number] ceFAZolin 2 gm In Sodium 100 Chloride 0.9% 50 ml @ 100 mls/hr IVPB Q8HR [facility] Rx# :[id number] Intake, IV Titration 214.062 18.079 16.059 Amount Clevidipine Butyrate 25 137.633 8.4 mg In Empty Bag 1 bag @ 1 MG/HR 2 mls/hr IV .Q24H [facility] Rx#:[id number] Insulin Regular 100 unit 26.429 9.679 16.059 In Sodium Chloride 0.9% 100 ml @ Per Protocol IV .Q0M [facility] Rx#:[id number] Lactated Ringers 1,000 ml 50 @ 20 mls/hr IV .Q24H [facility] Rx#:[id number] Oral 820 Output: Chest Tube Drainage 320 190 220 Pleural Catheter 90 90 110 Bilateral Pleural Catheter 230 100 110 Mediastinal Drainage 20 20 Left Arm 20 20 Urine 645 288 615 Other: Voiding Method Indwelling Catheter Indwelling Catheter Indwelling Catheter ABP, PAP, CO, CI - Last Documented Arterial Blood Pressure 179/51 Pulmonary Artery Pressure 33/8 Cardiac Output 5.8 Cardiac Index 2.9 - Labs CBC & Chem 7: 02/09/24 05:15 02/09/24 05:15 Labs: Abnormal Lab Results - Last 24 Hours (Table) 02/08/24 02/08/24 02/08/24 Range/Units 09:06 11:40 13:59 WBC (3.8-10.6) k/uL RBC (4.30-5.90) m/uL Hgb (13.0-17.5) gm/dL Hct (39.0-53.0) % Neutrophils # (1.3-7.7) k/uL Lymphocytes # (1.0-4.8) k/uL Sodium (137-145) mmol/L Glucose (74-99) mg/dL POC Glucose (mg/dL) 142 H 127 H 126 H (70-110) mg/dL Total Protein (6.3-8.2) g/dL Albumin (3.5-5.0) g/dL 02/08/24 02/08/24 02/08/24 Range/Units 15:33 16:47 18:33 WBC (3.8-10.6) k/uL RBC (4.30-5.90) m/uL Hgb (13.0-17.5) gm/dL Hct (39.0-53.0) % Neutrophils # (1.3-7.7) k/uL Lymphocytes # (1.0-4.8) k/uL Sodium (137-145) mmol/L Glucose (74-99) mg/dL POC Glucose (mg/dL) 130 H 125 H 145 H (70-110) mg/dL Total Protein (6.3-8.2) g/dL Albumin (3.5-5.0) g/dL 02/08/24 02/08/24 02/09/24 Range/Units 20:27 22:10 00:10 WBC (3.8-10.6) k/uL RBC (4.30-5.90) m/uL Hgb (13.0-17.5) gm/dL Hct (39.0-53.0) % Neutrophils # (1.3-7.7) k/uL Lymphocytes # (1.0-4.8) k/uL Sodium (137-145) mmol/L Glucose (74-99) mg/dL POC Glucose (mg/dL) 148 H 113 H 126 H (70-110) mg/dL Total Protein (6.3-8.2) g/dL Albumin (3.5-5.0) g/dL 02/09/24 02/09/24 02/09/24 Range/Units 02:06 04:02 05:15 WBC 13.1 H (3.8-10.6) k/uL RBC 3.27 L (4.30-5.90) m/uL Hgb 9.6 L (13.0-17.5) gm/dL Hct 28.9 L (39.0-53.0) % Neutrophils # 11.1 H (1.3-7.7) k/uL Lymphocytes # 0.9 L (1.0-4.8) k/uL Sodium (137-145) mmol/L Glucose (74-99) mg/dL POC Glucose (mg/dL) 127 H 118 H (70-110) mg/dL Total Protein (6.3-8.2) g/dL Albumin (3.5-5.0) g/dL 02/09/24 02/09/24 Range/Units 05:15 05:51 WBC (3.8-10.6) k/uL RBC (4.30-5.90) m/uL Hgb (13.0-17.5) gm/dL Hct (39.0-53.0) % Neutrophils # (1.3-7.7) k/uL Lymphocytes # (1.0-4.8) k/uL Sodium 131 L (137-145) mmol/L Glucose 106 H (74-99) mg/dL POC Glucose (mg/dL) 119 H (70-110) mg/dL Total Protein 5.1 L (6.3-8.2) g/dL Albumin 2.8 L (3.5-5.0) g/dL
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
[2024-02-10 08:00] LABS: Basophils % (A) 0 %; Eosinophils % (A) 0 %; HCT 27.7 % (39.0-53.0); HGB 8.8 gm/dL (13.0-17.5); Lymphocytes # (A) 0.9 k/uL (1.0-4.8); Lymphocytes % (A) 8 %; MCH 28.4 pg (25.0-35.0); MCHC 31.6 g/dL (31.0-37.0); MCV 89.9 fL (80.0-100.0); Mean Platelet Volume 8.8; Monocytes # (A) 0.7 k/uL (0-1.0); Monocytes % (A) 7 %; Neutrophils # (A) 8.7 k/uL (1.3-7.7); Neutrophils % (A) 82 %; Platelet Count 173 k/uL (150-450); RBC 3.08 m/uL (4.30-5.90); WBC 10.6 k/uL (3.8-10.6)
[2024-02-10 08:20] LABS: ALT 9 U/L (4-49); AST 19 U/L (17-59); African American GFR (CKD) 84 (>60 ml/min/1.73 sqM); Albumin 2.8 g/dL (3.5-5.0); Alkaline Phosphatase 63 U/L (38-126); Anion Gap 8 mmol/L; Blood Urea Nitrogen 23 mg/dL (9-20); Calcium 8.5 mg/dL (8.4-10.2); Carbon Dioxide 23 mmol/L (22-30); Chloride 102 mmol/L (98-107); Glucose 148 mg/dL (74-99); Non-African American GFR(CKD) 73 (>60 ml/min/1.73 sqM); Potassium 4.4 mmol/L (3.5-5.1); Sodium 133 mmol/L (137-145); Total Bilirubin 0.7 mg/dL (0.2-1.3); Total Protein 5.2 g/dL (6.3-8.2)
--- NOTE | 2024-02-10 08:24 | P.PN ---
Subjective Progress Note Date: 02/10/24 HISTORY OF PRESENT ILLNESS: 73-year-old office patient with active medical history of chronic pain syndrome, type 2 diabetes, coronary artery disease, hypertension, hyperlipidemia, chronic lower back pain, chronic neuropathy, history of tinnitus and mild hearing loss, who was on chronic pain management, he was having slightly with worsening symptoms of shortness of breath and slight chest pain ended up being referred to have cardiac testing positive stress test went to the General Agent Dr. Chou on January 27, 2024 with finding severe disease involving the distal left main coronary artery with severe disease involving the proximal to mid LAD with severe blockage of the left circumflex and severe lesion involving the proximal to mid RCA. The patient was referred to cardiothoracic surgeon at that point seen and evaluated and plan for surgery which was done today with three-vessel bypass. Patient ended up in the ICU on mechanical ventilation for management after surgery. Was able to extubate patient after few hours successfully is lying in bed pain-free hemodynamically stable and doing well. 02/08/2024: The patient is doing well sitting in the chair was taken off mechanical ventilation last night successfully doing well pain is well-co ntrolled, had mild anemia today with hemoglobin down to 10.1 he is still on amiodarone there is no sign of A-fib. Drainage tube are draining minimum serous fluid. The patient is hemodynamically stable at this point does not require any vasopressor. 02/09/2024: Patient remain in the ICU Sitting in his recliner, very comfortable, still have 2 chest tubes in. Blood pressure is well-controlled at 130/67 is not on any vasopressor. Blood sugars running in the low 100s still on insulin drip 0.4 units, will stop insulin start patient on Farxiga 5 mg an hour and continue Accu-Cheks sliding scales low coverage and in 24 hours we will try to wrap it up for longer acting insulin if needed. For medical management remain on statin, beta-meme and aspirin. Patient is not having any A-fib still on amiodarone. 02/10/2024: He is doing very well all tubes are out today he is not on any vasopressor, blood sugar this morning came back to be slightly bit higher his Farxiga was increased to 10 mg and will start patient back on metformin 850mg twice a day along with Accu-Chek with sliding scale coverage. No shortness of breath no anemia vitals are very stable blood pressure is better controlled cardiothoracic are finalizing his medication will titrate physical therapy today hopefully prepare for home tomorrow. REVIEW OF SYSTEMS: CONSTITUTIONAL: Well-developed no acute respiratory distress. Postextubation and off ventilator. EYES: No icterus sclerae, no conjunctivitis. EARS, NOSE, MOUTH, THROAT, and FACE: No sore throat, lymphadenopathy, carotid bruits or deformity. RESPIRATORY: Positive slight shortness of breath no cough or wheezes. CARDIOVASCULAR: Incision looks fine positive chest discomfort with irritation mild PND and orthopnea slight palpitation. GASTROINTESTINAL: No Abd pain, Nausea or vomiting, no Diarrhea or constipation, No GI Bleed, no distention or masses. GENITOURINARY: Negative for Hematuria or UTI, no kidney stones. INTEGUMENT/BREAST: Negative for any muscular injury with mild osteoarthritis.. HEMATOLOGIC/LYMPHATIC: Negative for bleed or purpura. MUSCULOSKELTAL: Negative for Myalgia or arthralgia. NEURLOGICAL: No LOC, Sz or syncope, blurred vision dizziness or abnormality.. BEHAVIORAL/PSYCH: Negative. ENDOCRINE: Negative. PHYSICAL EXAMINATION: General Appearance: Alert, cooperative, no distress, appears stated age. Neck HEENT: Supple, no lymphadenopathy, no thyroid enlargement, no carotid bru its. Lungs: Decreased breath sound the bases positive fine rhonchi no crackles. Chest Wall: Incision on the chest wall with no induration or bleeding at this point slight tenderness and discomfort still have to chest tube. Heart: Regular rate and rhythm, S1, S2 normal, positive S3, no murmur. Back: Symmetric, no curvature, ROM normal, no CVA tenderness. Abdomen: Soft, non-tender, bowel sounds active all four quadrants, no masses, no organomegaly. Extremities: Extremities normal, atraumatic, no cyanosis or edema. Pulses: 2+ and symmetric. Skin: Skin color, texture, tugor normal, no rashes or lesions. Neurologic: Alert oriented x3 cranial nerves II through XII intact, no motor deficit, no abnormal balance or gait. ASSESSMENT AND PLAN: _Severe triple-vessel coronary artery post three-vessel graft bypass with PAGE to the LAD, radial artery to the first diagonal and SVG to the RCA with left atrial appendage clipping. Stable with no complications so far advanced medical management and start PT. _CAD with multiple coronary artery disease: Post triple bypass surgery has done well so far. _Type 2 diabetes: Increase Farxiga up to 10 mg daily and add metformin 850 mg twice a day continue to use Accu-Cheks sliding scales coverage every 4 hours try to keep blood sugar below 150. _Arrhythmia: With no signs of A-fib Was on amiodarone starting after surgery IV will continue to watch for any arrhythmia or A-fib. _Chronic lower back pain and chronic pain syndrome and has been off narcotic is doing only Flexeril along with Tylenol. _Hyperlipidemia: Will switch to atorvastatin 40 mg nightly in the hospital. _BPH with no sign of obstruction resume Flomax. _Hypertension: Continue amlodipine 10 mg a day, metoprolol tartrate 50 mg every 8 hours and still on hydralazine IV push as needed. _Mild electrolyte imbalance much better so far with electrolyte none. _Mild reactive airway: Continue albuterol/ipratropium up to 4 times a day. Prognosis: Very good. Discharge planning: Patient is doing very well hopefully will be discharged home tomorrow with help. Objective - Vital Signs Vital signs: Vital Signs Temp 98.1 F 02/09/24 20:00 Pulse 87 02/09/24 20:00 Resp 14 02/09/24 20:00 BP 114/71 02/09/24 20:00 Pulse Ox 95 02/09/24 20:00 FiO2 40 02/07/24 16:50 Intake & Output 02/09/24 02/09/24 02/10/24 06:59 18:59 06:59 Intake Total 438.059 584 Output Total 835 668 400 Balance -396.941 -84 -400 Weight 84.9 kg 83.3 kg Intake: IV 422 104 0.9ns pressure bag 72 24 Lactated Ringers 1,000 ml 350 80 @ 20 mls/hr IV .Q24H [facility] Rx#:[id number] Intake, IV Titration 16.059 Amount Insulin Regular 100 unit 16.059 In Sodium Chloride 0.9% 100 ml @ Per Protocol IV .Q0M [facility] Rx#:[id number] Oral 480 Output: Chest Tube Drainage 220 30 Pleural Catheter 110 20 Bilateral Pleural Catheter 110 10 Mediastinal Urine 615 638 400 Other: Voiding Method Indwelling Catheter Toilet Toilet # Voids 1 ABP, PAP, CO, CI - Last Documented Arterial Blood Pressure 133/62 Pulmonary Artery Pressure 33/8 Cardiac Output 5.8 Cardiac Index 2.9 - Labs CBC & Chem 7: 02/10/24 07:32 02/10/24 07:32 Labs: Abnormal Lab Results - Last 24 Hours (Table) 02/09/24 02/09/24 02/09/24 Range/Units 05:51 11:32 16:43 POC Glucose (mg/dL) 119 H 132 H 181 H (70-110) mg/dL
[2024-02-10] MEDS: DAPAGLIFLOZIN PROPANEDIOL 10 MG TABLET PO SCH (09:01)
[2024-02-10] MEDS: METOPROLOL TARTRATE 50 MG TAB PO SCH (09:01)
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
[2024-02-10 12:00] LABS: Glucose,Whole Blood 171 mg/dL (70-110)
--- NOTE | 2024-02-10 15:50 | P.PN ---
Subjective Progress Note Date: 02/10/24 Principal diagnosis: Status post CABG, postoperative day #3 This is a 73-year-old male patient with a known history of peripheral vascular disease, hyperlipidemia, hypertension, diabetes mellitus, coronary artery disease. He was brought in today electively for an off-pump coronary artery bypass grafting x 3. He received a PAGE to the LAD, left radial artery to the first diagonal branch, reverse saphenous vein graft from aorta to the distal right coronary artery. He had undergone left atrial appendage ligation and clipping. He is seen today in the postoperative period in the intensive care unit. He is currently intubated and on the mechanical ventilator. Current se ttings are assist-control mode at a rate of 14, tidal volume 450, FiO2 40% and a PEEP of 5. Arterial blood gases revealed a PaO2 greater than 400, pCO2 of 36 and a pH of 7.41. That was on 100% FiO2. White count 8.1. Hemoglobin 9.3. Platelets 139. Sodium 134. Potassium 4.3. Bicarb 21. BUN 16. Creatinine 0.71. Glucose 143. AST 14. ALT 9. Albumin 3.1. His cardiac output is 7.3. Cardiac index 3.7. PA pressures 32/16. CVP of 9. He has a right IJ Lizemores-Faviola catheter in place. Right radial arterial line in place. He is currently on Cleviprex at 5 mg/h. Insulin at 6 units/h lactated Ringer's at 50 MLS per hour and a nitroglycerin drip at 10 mcg/min. Chest x-ray reveals endotracheal tube above the lavonne. Nasogastric tube in position. Lizemores-Faviola catheter in position. Bilateral thoracotomy tubes with mediastinal tubes as well. He has been initiated on bronchodilators. Patient was reevaluated today on 02/08/2024, patient is status post off pump coronary artery bypass grafting x 3, left internal thoracic artery (in-situ) to left anterior descending coronary artery, radial artery from aorta to 1st diagonal artery, reverse saphenous vein from aorta to distal right coronary artery postoperative day #1. Patient is doing well, he was extubated last night at 16: 52, and his overnight was basically uneventful, this morning the patient is relatively asymptomatic, on room air, does not seem to be in any distress. Remains on insulin at 2.4 units/h, cardiac output is 5.8 cardiac index is 2.9. Patient is hemodynamically stable, not requiring any inotropes or any pressors. Still attempting incentive spirometry, some of his lines and tubes may be removed today. Chest x-ray showed no evidence of congestive heart failure, he does have left basilar atelectasis and possibly a small tiny pleural effusionCBC is relatively normal., Basic metabolic profile is unremarkable, and he has a relatively normal renal profile Patient was seen and examined today on 02/09/2024, patient is sitting up in a recliner in the intensive care unit, hemodynamically stable, not in any dist ress, not requiring any pressors or any inotropes. On 3 L nasal cannula, O2 saturation is adequate. Patient has no specific complaints, achieving about 1000 cc via incentive spirometry, has been ambulating with assistance in the hallway. X-ray continues to show minimal left lower lobe atelectasis, hence the patient was encouraged to use his incentive spirometry more and more.WBC count is 13.1 hemoglobin 9.6, sodium 131 potassium 3.9 chloride 103 BUN 17 creatinine 0.82 Patient was seen and examined today on 02/10/2024, patient is doing great, he is in sinus rhythm, hemodynamically stable, on room air, all his lines and tubes have been discontinued yesterday, patient is achieving 1500 mL with his incentive spirometry, and his chest x-ray is reassuring. No evidence of active disease, patient has post operative findings otherwise negative. CBC is relatively normal basic metabolic profile is normal renal profile is normal Objective - Vital Signs Vital signs: Vital Signs Temp 97.8 F 02/10/24 04:00 Pulse 72 02/10/24 15:36 Resp 15 02/10/24 04:00 BP 129/65 02/10/24 04:00 Pulse Ox 97 02/10/24 08:01 FiO2 40 02/07/24 16:50 Intake & Output 02/09/24 02/10/24 02/10/24 18:59 06:59 18:59 Intake Total 584 120 Output Total 668 400 225 Balance -84 -400 -105 Weight 83.3 kg Intake: IV 104 0.9ns pressure bag 24 Lactated Ringers 1,000 ml 80 @ 20 mls/hr IV .Q24H [facility] Rx#:[id number] Oral 480 120 Output: Chest Tube Drainage 30 Pleural Catheter 20 Bilateral Pleural Catheter 10 Mediastinal Urine 638 400 225 Other: Voiding Method Toilet Toilet # Voids 1 ABP, PAP, CO, CI - Last Documented Arterial Blood Pressure 133/62 Pulmonary Artery Pressure 33/8 Cardiac Output 5.8 Cardiac Index 2.9 - Exam CONSTITUTIONAL: Reveals 73-year-old white male in no distress, on room air. RESPIRATORY: clear bilaterally no rhonchi no wheezes, symmetrical chest expansion CARDIOVASCULAR: Normal S1-S2, no S3 gallop, positive pericardial rub GASTROINTESTINAL: Soft nontender no megaly no rebound no guarding INTEGUMENTARY: No rashes. NEUROLOGIC: Alert oriented x 3 no gross focal deficit MUSKULOSKELETAL: No deformities no limitation range of motion PSYCHIATRIC: Normal mood affect and no mental status examination - Labs CBC & Chem 7: 02/10/24 07:32 02/10/24 07:32 Labs: Abnormal Lab Results - Last 24 Hours (Table) 02/09/24 02/10/24 02/10/24 Range/Units 16:43 07:32 07:32 RBC 3.08 L (4.30-5.90) m/uL Hgb 8.8 L (13.0-17.5) gm/dL Hct 27.7 L (39.0-53.0) % Neutrophils # 8.7 H (1.3-7.7) k/uL Lymphocytes # 0.9 L (1.0-4.8) k/uL Sodium 133 L (137-145) mmol/L BUN 23 H (9-20) mg/dL Glucose 148 H (74-99) mg/dL POC Glucose (mg/dL) 181 H (70-110) mg/dL Total Protein 5.2 L (6.3-8.2) g/dL Albumin 2.8 L (3.5-5.0) g/dL 02/10/24 Range/Units 11:58 RBC (4.30-5.90) m/uL Hgb (13.0-17.5) gm/dL Hct (39.0-53.0) % Neutrophils # (1.3-7.7) k/uL Lymphocytes # (1.0-4.8) k/uL Sodium (137-145) mmol/L BUN (9-20) mg/dL Glucose (74-99) mg/dL POC Glucose (mg/dL) 171 H (70-110) mg/dL Total Protein (6.3-8.2) g/dL Albumin (3.5-5.0) g/dL Assessment and Plan Assessment: Impression: Status post off-pump CABG with left main disease, status post three-vessel CABG postoperative day #2 Dyslipidemia Type 2 diabetes Benign essential hypertension Peripheral vessel occlusive disease Ex-smoker Mild COPD previous FEV1 is 67% Chronic marijuana use Recommendation: Continue present supportive care measures Continue maximal medical therapy including statin Plavix beta-meme and aspirin Continue incentive spirometry, achieving 1500 mL with encouragement. Early ambulation GI DVT prophylaxis Continue bronchodilators Discharge planning likely in a.m. Will continue to follow Time with Patient: Less than 30
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
[2024-02-10 16:27] LABS: Glucose,Whole Blood 218 mg/dL (70-110)
[2024-02-10] MEDS: metFORMIN 850 MG TAB PO SCH (16:51)
[2024-02-10 20:15] LABS: Glucose,Whole Blood 195 mg/dL (70-110)
[2024-02-11 05:12] LABS: HCT 24.5 % (39.0-53.0); MCH 29.3 pg (25.0-35.0); MCHC 32.5 g/dL (31.0-37.0); MCV 90.2 fL (80.0-100.0); Mean Platelet Volume 8.8; Platelet Count 185 k/uL (150-450); RBC 2.72 m/uL (4.30-5.90); WBC 9.1 k/uL (3.8-10.6)
[2024-02-11 05:23] LABS: African American GFR (CKD) 81 (>60 ml/min/1.73 sqM); Anion Gap 4 mmol/L; Blood Urea Nitrogen 25 mg/dL (9-20); Calcium 8.2 mg/dL (8.4-10.2); Carbon Dioxide 25 mmol/L (22-30); Chloride 104 mmol/L (98-107); Glucose 110 mg/dL (74-99); Non-African American GFR(CKD) 70 (>60 ml/min/1.73 sqM); Potassium 3.8 mmol/L (3.5-5.1); Sodium 133 mmol/L (137-145)
[2024-02-11 06:41] LABS: Glucose,Whole Blood 129 mg/dL (70-110)
[2024-02-11] MEDS: MAGNESIUM HYDROXIDE 2,400 MG/30 ML CUP PO PRN (06:42)
[2024-02-11] MEDS: FERROUS SULFATE 325 MG TAB PO SCH (07:05)
[2024-02-11] MEDS: ASCORBIC ACID 500 MG TAB PO SCH (07:05)
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
[2024-02-11 11:20] LABS: Glucose,Whole Blood 150 mg/dL (70-110)
[2024-02-11] MEDS: bisacodyL 10 MG SUPP RECTAL PRN (11:28)
--- NOTE | 2024-02-11 12:42 | XR ---
EXAMINATION TYPE: XR chest 2V DATE OF EXAM: 02/11/2024 COMPARISON: 02/10/2024 HISTORY: 73-year-old male postcardiac surgery TECHNIQUE: PA and lateral views FINDINGS: Median sternotomy wires are present. Clips. Heart mildly enlarged. Moderate interstitial density. Sma ll bilateral pleural effusions. IMPRESSION: Residual mild pulmonary vascular congestion. Small bilateral pleural effusions remain.
--- NOTE | 2024-02-11 13:39 | P.PN ---
Subjective Progress Note Date: 02/11/24 Principal diagnosis: Status post CABG, postoperative day #4 This is a 73-year-old male patient with a known history of peripheral vascular disease, hyperlipidemia, hypertension, diabetes mellitus, coronary artery disease. He was brought in today electively for an off-pump coronary artery bypass grafting x 3. He received a PAGE to the LAD, left radial artery to the first diagonal branch, reverse saphenous vein graft from aorta to the distal right coronary artery. He had undergone left atrial appendage ligation and clipping. He is seen today in the postoperative period in the intensive care unit. He is currently intubated and on the mechanical ventilator. Current se ttings are assist-control mode at a rate of 14, tidal volume 450, FiO2 40% and a PEEP of 5. Arterial blood gases revealed a PaO2 greater than 400, pCO2 of 36 and a pH of 7.41. That was on 100% FiO2. White count 8.1. Hemoglobin 9.3. Platelets 139. Sodium 134. Potassium 4.3. Bicarb 21. BUN 16. Creatinine 0.71. Glucose 143. AST 14. ALT 9. Albumin 3.1. His cardiac output is 7.3. Cardiac index 3.7. PA pressures 32/16. CVP of 9. He has a right IJ Elizabeth-Faviola catheter in place. Right radial arterial line in place. He is currently on Cleviprex at 5 mg/h. Insulin at 6 units/h lactated Ringer's at 50 MLS per hour and a nitroglycerin drip at 10 mcg/min. Chest x-ray reveals endotracheal tube above the lavonne. Nasogastric tube in position. Elizabeth-Faviola catheter in position. Bilateral thoracotomy tubes with mediastinal tubes as well. He has been initiated on bronchodilators. Patient was reevaluated today on 02/08/2024, patient is status post off pump coronary artery bypass grafting x 3, left internal thoracic artery (in-situ) to left anterior descending coronary artery, radial artery from aorta to 1st diagonal artery, reverse saphenous vein from aorta to distal right coronary artery postoperative day #1. Patient is doing well, he was extubated last night at 16: 52, and his overnight was basically uneventful, this morning the patient is relatively asymptomatic, on room air, does not seem to be in any distress. Remains on insulin at 2.4 units/h, cardiac output is 5.8 cardiac index is 2.9. Patient is hemodynamically stable, not requiring any inotropes or any pressors. Still attempting incentive spirometry, some of his lines and tubes may be removed today. Chest x-ray showed no evidence of congestive heart failure, he does have left basilar atelectasis and possibly a small tiny pleural effusionCBC is relatively normal., Basic metabolic profile is unremarkable, and he has a relatively normal renal profile Patient was seen and examined today on 02/09/2024, patient is sitting up in a recliner in the intensive care unit, hemodynamically stable, not in any dist ress, not requiring any pressors or any inotropes. On 3 L nasal cannula, O2 saturation is adequate. Patient has no specific complaints, achieving about 1000 cc via incentive spirometry, has been ambulating with assistance in the hallway. X-ray continues to show minimal left lower lobe atelectasis, hence the patient was encouraged to use his incentive spirometry more and more.WBC count is 13.1 hemoglobin 9.6, sodium 131 potassium 3.9 chloride 103 BUN 17 creatinine 0.82 Patient was seen and examined today on 02/10/2024, patient is doing great, he is in sinus rhythm, hemodynamically stable, on room air, all his lines and tubes have been discontinued yesterday, patient is achieving 1500 mL with his incentive spirometry, and his chest x-ray is reassuring. No evidence of active disease, patient has post operative findings otherwise negative. CBC is relatively normal basic metabolic profile is normal renal profile is normal Reevaluate today on 02/11/2024, patient is doing well, asymptomatic, sitting in a recliner, not in any distress, on room air, patient is likely to be discharged home today. Chest x-ray showed minimal pulmonary vascular congestion and small pleural effusions, expected. WBC count today is 9.1 hemoglobin is 8 basic metabolic profile is normal renal profile is normal Objective - Vital Signs Vital signs: Vital Signs Temp 97.6 F 02/11/24 12:00 Pulse 68 02/11/24 12:00 Resp 14 02/11/24 12:00 BP 105/62 02/11/24 12:00 Pulse Ox 96 02/11/24 12:00 FiO2 40 02/07/24 16:50 Intake & Output 02/10/24 02/11/24 02/11/24 18:59 06:59 18:59 Intake Total 120 Output Total 875 550 300 Balance -755 -550 -300 Weight 83.2 kg Intake: Oral 120 Output: Urine 875 550 300 Other: Voiding Method Toilet Toilet # Voids 1 ABP, PAP, CO, CI - Last Documented Arterial Blood Pressure 133/62 Pulmonary Artery Pressure 33/8 Cardiac Output 5.8 Cardiac Index 2.9 - Exam CONSTITUTIONAL: Reveals 73-year-old white male in no distress, on room air. RESPIRATORY: clear bilaterally no rhonchi no wheezes, symmetrical chest expansion CARDIOVASCULAR: Normal S1-S2, no S3 gallop, positive pericardial rub GASTROINTESTINAL: Soft nontender no megaly no rebound no guarding INTEGUMENTARY: No rashes. NEUROLOGIC: Alert oriented x 3 no gross focal deficit MUSKULOSKELETAL: No deformities no limitation range of motion PSYCHIATRIC: Normal mood affect and no mental status examination - Labs CBC & Chem 7: 02/11/24 04:45 02/11/24 04:45 Labs: Abnormal Lab Results - Last 24 Hours (Table) 02/10/24 02/10/24 02/11/24 Range/Units 16:25 20:14 04:45 RBC 2.72 L (4.30-5.90) m/uL Hgb 8.0 L (13.0-17.5) gm/dL Hct 24.5 L (39.0-53.0) % Sodium (137-145) mmol/L BUN (9-20) mg/dL Glucose (74-99) mg/dL POC Glucose (mg/dL) 218 H 195 H (70-110) mg/dL Calcium (8.4-10.2) mg/dL 02/11/24 02/11/24 02/11/24 Range/Units 04:45 06:39 11:19 RBC (4.30-5.90) m/uL Hgb (13.0-17.5) gm/dL Hct (39.0-53.0) % Sodium 133 L (137-145) mmol/L BUN 25 H (9-20) mg/dL Glucose 110 H (74-99) mg/dL POC Glucose (mg/dL) 129 H 150 H (70-110) mg/dL Calcium 8.2 L (8.4-10.2) mg/dL Assessment and Plan Assessment: Impression: Status post off-pump CABG with left main disease, status post three-vessel CABG postoperative day #3 Dyslipidemia Type 2 diabetes Benign essential hypertension Peripheral vessel occlusive disease Ex-smoker Mild COPD previous FEV1 is 67% Chronic marijuana use Recommendation: Continue maximal medical therapy including statin Plavix beta-meme and aspirin Continue incentive spirometry, We will discharge home today and follow-up on outpatient basis Time with Patient: Less than 30
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
[2024-02-11 15:09] VITALS: BP 105/60; PULSE 69; RESP 16; TEMP 97.8
--- NOTE | 2024-02-11 16:04 | P.PN ---
Subjective Progress Note Date: 02/11/24 HISTORY OF PRESENT ILLNESS: 73-year-old office patient with active medical history of chronic pain syndrome, type 2 diabetes, coronary artery disease, hypertension, hyperlipidemia, chronic lower back pain, chronic neuropathy, history of tinnitus and mild hearing loss, who was on chronic pain management, he was having slightly with worsening symptoms of shortness of breath and slight chest pain ended up being referred to have cardiac testing positive stress test went to the [employer] Dr. Chou on January 27, 2024 with finding severe disease involving the distal left main coronary artery with severe disease involving the proximal to mid LAD with severe blockage of the left circumflex and severe lesion involving the proximal to mid RCA. The patient was referred to cardiothoracic surgeon at that point seen and evaluated and plan for surgery which was done today with three-vessel bypass. Patient ended up in the ICU on mechanical ventilation for management after surgery. Was able to extubate patient after few hours successfully is lying in bed pain-free hemodynamically stable and doing well. 02/08/2024: The patient is doing well sitting in the chair was taken off mechanical ventilation last night successfully doing well pain is well-co ntrolled, had mild anemia today with hemoglobin down to 10.1 he is still on amiodarone there is no sign of A-fib. Drainage tube are draining minimum serous fluid. The patient is hemodynamically stable at this point does not require any vasopressor. 02/09/2024: Patient remain in the ICU Sitting in his recliner, very comfortable, still have 2 chest tubes in. Blood pressure is well-controlled at 130/67 is not on any vasopressor. Blood sugars running in the low 100s still on insulin drip 0.4 units, will stop insulin start patient on Farxiga 5 mg an hour and continue Accu-Cheks sliding scales low coverage and in 24 hours we will try to wrap it up for longer acting insulin if needed. For medical management remain on statin, beta-meme and aspirin. Patient is not having any A-fib still on amiodarone. 02/10/2024: He is doing very well all tubes are out today he is not on any vasopressor, blood sugar this morning came back to be slightly bit higher his Farxiga was increased to 10 mg and will start patient back on metformin 850mg twice a day along with Accu-Chek with sliding scale coverage. No shortness of breath no anemia vitals are very stable blood pressure is better controlled cardiothoracic are finalizing his medication will titrate physical therapy today hopefully prepare for home tomorrow. 02/11/2024: Patient is resting comfortably in the ICU cardiothoracic team on 06 December any home today, blood sugar Hydron slightly elevated around 208 yesterday with adjustment today with his Farxiga along with metformin plus insulin brought down to the low 100s. Hemoglobin dropped down to 8.0 kidney function is still running good. Patient not having any arrhythmia and apparently the plan is still to send him home. He is going home on Jardiance 25 mg a day along with metformin 850 mg twice a day if needed to add smaller dose of the glipizide with the next lab like he was on before will be probably 5 mg half tablet twice a day he can benefit from continued glucose monitor which will have our office arrange it for him. REVIEW OF SYSTEMS: CONSTITUTIONAL: Well-developed no acute respiratory distress. Postextubation and off ventilator. EYES: No icterus sclerae, no conjunctivitis. EARS, NOSE, MOUTH, THROAT, and FACE: No sore throat, lymphadenopathy, carotid bruits or deformity. RESPIRATORY: Positive slight shortness of breath no cough or wheezes. CARDIOVASCULAR: Incision looks fine positive chest discomfort with irritation mild PND and orthopnea slight palpitation. GASTROINTESTINAL: No Abd pain, Nausea or vomiting, no Diarrhea or constipation, No GI Bleed, no distention or masses. GENITOURINARY: Negative for Hematuria or UTI, no kidney stones. INTEGUMENT/BREAST: Negative for any muscular injury with mild osteoarthritis.. HEMATOLOGIC/LYMPHATIC: Negative for bleed or purpura. MUSCULOSKELTAL: Negative for Myalgia or arthralgia. NEURLOGICAL: No LOC, Sz or syncope, blurred vision dizziness or abnormality.. BEHAVIORAL/PSYCH: Negative. ENDOCRINE: Negative. PHYSICAL EXAMINATION: General Appearance: Alert, cooperative, no distress, appears stated age. Neck HEENT: Supple, no lymphadenopathy, no thyroid enlargement, no carotid bruits. Lungs: Decreased breath sound the bases positive fine rhonchi no crackles. Chest Wall: Incision on the chest wall with no induration or bleeding at this point slight tenderness and discomfort still have to chest tube. Heart: Regular rate and rhythm, S1, S2 normal, positive S3, no murmur. Back: Symmetric, no curvature, ROM normal, no CVA tenderness. Abdomen: Soft, non-tender, bowel sounds active all four quadrants, no masses, no organomegaly. Extremities: Extremities normal, atraumatic, no cyanosis or edema. Pulses: 2+ and symmetric. Skin: Skin color, texture, tugor normal, no rashes or lesions. Neurologic: Alert oriented x3 cranial nerves II through XII intact, no motor deficit, no abnormal balance or gait. ASSESSMENT AND PLAN: _Severe triple-vessel coronary artery post three-vessel graft bypass with PAGE to the LAD, radial artery to the first diagonal and SVG to the RCA with left atrial appendage clipping. Stable with no complications so far advanced medical management and start PT. _CAD with multiple coronary artery disease: Post triple bypass surgery has done well so far. _Type 2 diabetes: Has going home will be on Jardiance 25 mg a day along with metformin a 50 mg twice a day and will end up adding glipizide 5 mg half tablet twice a day continue glucose monitor might be a good idea as neck step when he goes home and this can be arranged in the office in the next few days. _Arrhythmia: With no signs of A-fib Was on amiodarone starting after surgery IV will continue to watch for any arrhythmia or A-fib. _Chronic lower back pain and chronic pain syndrome and has been off narcotic is doing only Flexeril along with Tylenol. _Hyperlipidemia: Will switch to atorvastatin 40 mg nightly in the hospital. _BPH with no sign of obstruction resume Flomax. Patient has no urinary obstruction. _Hypertension: Continue amlodipine 10 mg a day, metoprolol tartrate 50 mg every 8 hours and still on hydralazine IV push as needed. _Severe GERD: Remain on pantoprazole should be continue afterward. _Mild reactive airway: Continue albuterol/ipratropium up to 4 times a day. Prognosis: Very good. Discharge planning: Patient stable to be discharged today and will follow-up in the office hopefully in the next few days. Objective - Vital Signs Vital signs: Vital Signs Temp 98.4 F 02/11/24 04:00 Pulse 69 02/11/24 04:00 Resp 16 02/11/24 04:00 BP 130/67 02/11/24 04:00 Pulse Ox 92 L 02/11/24 04:00 FiO2 40 02/07/24 16:50 Intake & Output 02/10/24 02/10/24 02/11/24 06:59 18:59 06:59 Intake Total 120 Output Total 400 875 550 Balance -924 -256 -030 Weight 83.3 kg Intake: Oral 120 Output: Urine 400 875 550 Other: Voiding Method Toilet Toilet Toilet ABP, PAP, CO, CI - Last Documented Arterial Blood Pressure 133/62 Pulmonary Artery Pressure 33/8 Cardiac Output 5.8 Cardiac Index 2.9 - Labs CBC & Chem 7: 02/11/24 04:45 02/11/24 04:45 Labs: Abnormal Lab Results - Last 24 Hours (Table) 02/10/24 02/10/24 02/10/24 Range/Units 07:32 07:32 11:58 RBC 3.08 L (4.30-5.90) m/uL Hgb 8.8 L (13.0-17.5) gm/dL Hct 27.7 L (39.0-53.0) % Neutrophils # 8.7 H (1.3-7.7) k/uL Lymphocytes # 0.9 L (1.0-4.8) k/uL Sodium 133 L (137-145) mmol/L BUN 23 H (9-20) mg/dL Glucose 148 H (74-99) mg/dL POC Glucose (mg/dL) 171 H (70-110) mg/dL Calcium (8.4-10.2) mg/dL Total Protein 5.2 L (6.3-8.2) g/dL Albumin 2.8 L (3.5-5.0) g/dL 02/10/24 02/10/24 02/11/24 Range/Units 16:25 20:14 04:45 RBC 2.72 L (4.30-5.90) m/uL Hgb 8.0 L (13.0-17.5) gm/dL Hct 24.5 L (39.0-53.0) % Neutrophils # (1.3-7.7) k/uL Lymphocytes # (1.0-4.8) k/uL Sodium (137-145) mmol/L BUN (9-20) mg/dL Glucose (74-99) mg/dL POC Glucose (mg/dL) 218 H 195 H (70-110) mg/dL Calcium (8.4-10.2) mg/dL Total Protein (6.3-8.2) g/dL Albumin (3.5-5.0) g/dL 02/11/24 Range/Units 04:45 RBC (4.30-5.90) m/uL Hgb (13.0-17.5) gm/dL Hct (39.0-53.0) % Neutrophils # (1.3-7.7) k/uL Lymphocytes # (1.0-4.8) k/uL Sodium 133 L (137-145) mmol/L BUN 25 H (9-20) mg/dL Glucose 110 H (74-99) mg/dL POC Glucose (mg/dL) (70-110) mg/dL Calcium 8.2 L (8.4-10.2) mg/dL Total Protein (6.3-8.2) g/dL Albumin (3.5-5.0) g/dL
== END 2024-02-11 16:48 | disposition home health service (06) | DRG 236 ==
LOC: 2ORMAIN 05:34 → 2SICU 12:21
PROVIDERS: ADMIT Thoracic Surgery (Cardiothoracic Vascular Surgery); ATTEND Thoracic Surgery (Cardiothoracic Vascular Surgery)
PROC: 06BQ4ZZ Excision of Left Saphenous Vein, Percutaneous Endoscopic Approach (ICD-10-PCS; 2024-02-07)
PROC: 05BA4ZZ Excision of Left Brachial Vein, Percutaneous Endoscopic Approach (ICD-10-PCS; 2024-02-07)
PROC: 02L70CK Occlusion of Left Atrial Appendage with Extraluminal Device, Open Approach (ICD-10-PCS; 2024-02-07)
PROC: B24BZZ4 Ultrasonography of Heart with Aorta, Transesophageal (ICD-10-PCS; 2024-02-07)
PROC: 4A0305C Measurement of Arterial Flow, Coronary, Open Approach (ICD-10-PCS; 2024-02-07)
PROC: 3E033RZ Introduction of Antiarrhythmic into Peripheral Vein, Percutaneous Approach (ICD-10-PCS; 2024-02-07)
PROC: 30233J1 Transfusion of Nonautologous Serum Albumin into Peripheral Vein, Percutaneous Approach (ICD-10-PCS; 2024-02-07)
PROC: 02100ZC Bypass Coronary Artery, One Artery from Thoracic Artery, Open Approach (ICD-10-PCS; principal; 2024-02-07 08:00)
PROC: 02100AW Bypass Coronary Artery, One Artery from Aorta with Autologous Arterial Tissue, Open Approach (ICD-10-PCS; 2024-02-07 08:00)
PROC: 021009W Bypass Coronary Artery, One Artery from Aorta with Autologous Venous Tissue, Open Approach (ICD-10-PCS; 2024-02-07 08:00)
DX: I25.10 Atherosclerotic heart disease of native coronary artery without angina pectoris (principal); D62 Acute posthemorrhagic anemia; E11.51 Type 2 diabetes mellitus with diabetic peripheral angiopathy without gangrene; E11.42 Type 2 diabetes mellitus with diabetic polyneuropathy; I10 Essential (primary) hypertension; E78.5 Hyperlipidemia, unspecified; I65.21 Occlusion and stenosis of right carotid artery; J44.89 Other specified chronic obstructive pulmonary disease; N40.0 Benign prostatic hyperplasia without lower urinary tract symptoms; M54.50 Low back pain, unspecified; G89.4 Chronic pain syndrome; H91.90 Unspecified hearing loss, unspecified ear; K21.9 Gastro-esophageal reflux disease without esophagitis; I49.8 Other specified cardiac arrhythmias; H93.19 Tinnitus, unspecified ear; Z87.891 Personal history of nicotine dependence; Z79.82 Long term (current) use of aspirin; Z79.84 Long term (current) use of oral hypoglycemic drugs; Z79.899 Other long term (current) drug therapy; Z88.8 Allergy status to other drugs, medicaments and biological substances
CPT/HCPCS: 71045; 71046; 80048; 80053; 82330; 82805; 83735; 85025; 85027; 85610; 85730; 86850; 86900; 86901; 86920; 94002; 94640; 94760

== ENCOUNTER → 2024-03-17 | Outpatient (CLI) | payer OTHER ==
--- NOTE | 2024-03-17 11:28 | XR ---
EXAMINATION TYPE: XR chest 2V DATE OF EXAM: 03/17/2024 HISTORY: Shortness of breath. COMPARISON: 02/21/2024 TECHNIQUE: Single view of the chest is submitted. FINDINGS: Demonstrated are scattered senescent parenchymal change. There is no evidence for focal infiltrate. The heart is stable. Hilar and mediastinal structures are within normal limits. Degenerative changes are seen of the dorsal spine. IMPRESSION: 1. Chronic changes without evidence for acute pulmonary disease.
== END | disposition home or self-care (01) ==
LOC: RADXRMAIN 09:15
PROVIDERS: ATTEND Internal Medicine
DX: J90 Pleural effusion, not elsewhere classified (principal)
CPT/HCPCS: 71046

== ENCOUNTER 2024-12-22 14:24 | Observation (INO) | payer OTHER, MEDICARE ==
[2024-12-22] MEDS: ONDANSETRON 4 MG/2 ML VIAL IVP STA ×2 (15:48→20:41)
[2024-12-22] MEDS: SODIUM CHLORIDE 0.9% 1,000 ML IV STA (15:48)
[2024-12-22] MEDS: LABETALOL 5 MG/ML VIAL MDV IVP STA ×3 (15:51→17:14)
[2024-12-22 15:55] LABS: HGB 9.9 gm/dL (13.0-17.5); RBC 3.44 m/uL (4.30-5.90); WBC 13.8 k/uL (3.8-10.6)
[2024-12-22 15:56] LABS: Appearance,Urine Clear (Clear); Basophils % (A) 0 %; Bilirubin,Urine Negative (Negative); Blood,Urine Small (Negative); Color,Urine Colorless; Eosinophils % (A) 0 %; Glucose,Urine (UA) 4+ (Negative); HCT 30.4 % (39.0-53.0); Hypochromasia Slight; Leukocyte Esterase,Urine Negative (Negative); Lymphocytes # (A) 0.6 k/uL (1.0-4.8); Lymphocytes % (A) 4 %; MCH 28.7 pg (25.0-35.0); MCHC 32.5 g/dL (31.0-37.0); MCV 88.4 fL (80.0-100.0); Mean Platelet Volume 7.8; Monocytes # (A) 0.9 k/uL (0-1.0); Monocytes % (A) 6 %; Neutrophils # (A) 12.1 k/uL (1.3-7.7); Neutrophils % (A) 88 %; Nitrite,Urine Negative (Negative); PH, Urine 5.5 (5.0-8.0); Platelet Count 242 k/uL (150-450); Protein,Urine Trace (Negative); RBC,Urine 1 /hpf (0-5); RDW 15.3 % (11.5-15.5); Specific Gravity,Urine 1.023 (1.001-1.035); Squamous Epithelial Cell,Urine 1 /hpf (0-4); Urobilinogen,Urine <2.0 mg/dL (<2.0); WBC,Urine <1 /hpf (0-5)
[2024-12-22 16:02] LABS: Ketones,Urine 4+ (Negative)
[2024-12-22 16:09] LABS: ALT 13 U/L (4-49); AST 14 U/L (17-59); African American GFR (CKD) >90 (>60 ml/min/1.73 sqM); Albumin 3.9 g/dL (3.5-5.0); Alkaline Phosphatase 51 U/L (38-126); Anion Gap 21 mmol/L; Blood Urea Nitrogen 19 mg/dL (9-20); Calcium 9.3 mg/dL (8.4-10.2); Carbon Dioxide 15 mmol/L (22-30); Chloride 107 mmol/L (98-107); Glucose 214 mg/dL (74-99); Lipase 23 U/L (23-300); Non-African American GFR(CKD) 85 (>60 ml/min/1.73 sqM); Potassium 3.9 mmol/L (3.5-5.1); Sodium 143 mmol/L (137-145); Total Bilirubin 0.6 mg/dL (0.2-1.3); Total Protein 6.4 g/dL (6.3-8.2)
[2024-12-22 16:18] LABS: NT-Pro-B-Type Natriuretic Pept 2580 pg/mL
[2024-12-22 16:30] LABS: INR 0.9 (<1.2)
[2024-12-22 16:31] LABS: Influenza A Not Detected (Not Detectd); Influenza B Not Detected (Not Detectd); Partial Thromboplastin Time 20.9 sec (22.0-30.0); Prothrombin Time 10.2 sec (10.0-12.5); RSV Not Detected (Not Detectd)
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
--- NOTE | 2024-12-22 18:12 | CT ---
EXAMINATION TYPE: CT abdomen pelvis w con CT DLP: Combined DLP of 1305.5 mGycm, Automated exposure control for dose reduction was used. DATE OF EXAM: 12/22/2024 5:53 PM COMPARISON: CTA chest of the same day CLINICAL INDICATION:Male, 74 years old with history of N/V, concern for bowel obstruction; N/V, arlene rn for bowel obstruction. TECHNIQUE: Standard CT of the abdomen and pelvis following the administration of 100 cc of Isovue 3 00 IV contrast material. Coronal and sagittal reformats were performed. FINDINGS: LOWER CHEST: Please see dedicated CTA chest for findings ABDOMEN LIVER: Posterior right hepatic lobe 1 cm cyst. GALLBLADDER AND BILE DUCTS: Layering increased densities within the lumen consistent with gallstones are present. No biliary duct dilatation. PANCREAS: Mild fatty infiltration. SPLEEN: Unremarkable. ADRENAL GLANDS: Unremarkable. KIDNEYS AND URETERS: No evidence of hydronephrosis or renal calculus. The kidneys enhance symmetrical ly. Multiple bilateral renal cysts with largest cyst involving the right kidney measuring up to 3.3 c m and largest within the left kidney measuring up to 3.8 cm. Nonspecific bilateral perinephric fat st randing. Contrast is demonstrated within both collecting systems and proximal ureters on the delayed phase. PELVIS BLADDER: Unremarkable REPRODUCTIVE: Unremarkable. ABDOMEN & PELVIS STOMACH AND BOWEL: Stomach and duodenum are unremarkable. Sigmoid diverticulosis without evidence for acute diverticulitis. The appendix is within normal limits. No focal bowel wall thickening or surrou nding inflammatory changes. Mild amount of stool is present within the colon. No evidence of bowel ob struction. PERITONEUM: No evidence of pneumoperitoneum or free fluid. VASCULATURE: Mild atherosclerotic calcifications are present throughout the abdominal aorta and its b ranches. No evidence of aortic aneurysm. MUSCULOSKELETAL: No acute osseous abnormalities. Postsurgical changes from bilateral hip arthroplasty . This creates streak artifact which limits evaluation. Mild multilevel degenerative disc disease. LYMPH NODES: No evidence for lymphadenopathy. SOFT TISSUE/ABDOMINAL WALL: Patulous bilateral fat filled inguinal rings. Soft tissue gas identified within the left lower extremity thigh musculature with edematous changes and intramuscular lipoma. Ga s extends into the left gluteal musculature. No visualized organized enhancing fluid collection. IMPRESSION: 1. No acute intra-abdominal/pelvic process. No evidence for bowel obstruction. 2. Edema with intramuscular gas identified in the left thigh musculature and extending into the left gluteal musculature. Evidence of bilateral hip arthroplasty. Correlate for recent surgical interventi on. Otherwise raises concern for infection. 3. Sigmoid diverticulosis without evidence for acute diverticulitis. [facility], , 12/22/2024 6:10 PM
--- NOTE | 2024-12-22 18:15 | CT ---
EXAMINATION TYPE: CT chest angio for PE CT DLP: Combined DLP of 1305.5 mGycm, Automated exposure control for dose reduction was used. DATE OF EXAM: 12/22/2024 5:53 PM COMPARISON: CT chest 01/27/2024, chest radiograph 03/17/2024, CT abdomen and pelvis 12/22/2024. CLINICAL INDICATION:Male, 74 years old with history of elevated dimer, recent hip replacement; Elevat ed D-dimer. TECHNIQUE/CONTRAST: CTA scan of the thorax is performed with IV Contrast, patient injected with 100 ml mL of Isovue 370, pulmonary embolism protocol. MIP images are created and reviewed. FINDINGS: Pulmonary Artery: There is no evidence for a filling defect within the pulmonary vasculature to sugge st acute pulmonary embolism. The pulmonary artery is of normal size. Lungs/Pleura: No evidence of focal consolidation, pleural effusion or pneumothorax. No suspicious pul monary nodule or mass. Airway: Large airways are patent. Heart: Cardiomegaly is demonstrated.No pericardial effusion. Coronary artery atherosclerotic changes and stents present. Post-CABG changes. Vasculature: No evidence of aortic aneurysm. Mild atherosclerotic calcification of the aorta and its branches. Mediastinum: No gross evidence of adenopathy. Musculoskeletal: No acute osseous abnormalities. Median sternotomy wires. Multilevel osteophytosis of the thoracic spine. Soft Tissues: Mild bilateral gynecomastia. Lower neck: No significant findings. Upper Abdomen: Circumferential wall thickening of the distal esophagus. Please see CT abdomen pelvis of the same day for findings. IMPRESSION: 1. No evidence of pulmonary embolism. 2. Circumferential wall thickening of the distal esophagus. Correlate for esophagitis. [facility], , 12/22/2024 6:13 PM
[2024-12-22] MEDS ORDERED: VANCOMYCIN IV PER PHARMACY 1 EACH MISC MISCELLANE PRN (18:20)
[2024-12-22] MEDS: ACETAMINOPHEN IV (For NPO) 1,000 MG in EMPTY BAG 1 BAG IVPB STA (19:44)
[2024-12-22] MEDS: SODIUM CHLORIDE 0.9% 1,000 ML IV ONE (19:44)
[2024-12-22] MEDS: CEFEPIME 2 GM in SODIUM CHLORIDE 0.9% 100 ML IVPB STA (20:07)
[2024-12-22] MEDS ORDERED: NALOXONE 0.4 MG/ML 1 ML VIAL IV PRN (20:08)
[2024-12-22] MEDS ORDERED: ALPRAZolam 0.25 MG TAB PO PRN (20:08)
[2024-12-22] MEDS ORDERED: DOCUSATE 100 MG CAP PO PRN (20:08)
[2024-12-22] MEDS ORDERED: ONDANSETRON 4 MG/2 ML VIAL IVP PRN (20:08)
[2024-12-22] MEDS ORDERED: MAG HYDROX/AL HYDROX/SIMETH 30 ML CUP PO PRN (20:08)
[2024-12-22] MEDS ORDERED: CALCIUM CARBONATE 500 MG CHEWABLE PO PRN (20:08)
[2024-12-22] MEDS ORDERED: bisacodyL 5 MG TABLET.DR PO PRN (20:08)
[2024-12-22] MEDS ORDERED: MORPHINE SULFATE 2 MG/ML SYRINGE IVP PRN (20:39)
[2024-12-22] MEDS: MORPHINE SULFATE 2 MG/ML SYRINGE IVP STA (20:40)
[2024-12-22] MEDS: METOPROLOL TARTRATE 50 MG TAB PO SCH (20:45)
[2024-12-22] MEDS: amLODIPine 5 MG TAB PO SCH (20:45)
[2024-12-22] MEDS ORDERED: NON FORMULARY DRUG (Cefadroxil [Duricef] 500 MG Capsule) PO SCH (21:00)
[2024-12-22] MEDS: SODIUM CHLORIDE 0.9% 1,000 ML IV SCH (21:37)
[2024-12-22] MEDS: VANCOMYCIN 1,500 MG in SODIUM CHLORIDE 0.9% 500 ML 500 ML IVPB STA (21:38)
[2024-12-22] MEDS: TAMSULOSIN 0.4 MG CAP.ER.24H PO SCH (21:39)
[2024-12-22] MEDS: FAMOTIDINE 20 MG TAB PO SCH (21:39)
[2024-12-22] MEDS: FINASTERIDE 5 MG TAB PO SCH (21:39)
[2024-12-22] MEDS: PROCHLORPERAZINE INJ 10 MG/2 ML VIAL IVP STA (21:56)
[2024-12-22] MEDS: ZOLPIDEM 5 MG TAB PO SCH (22:57)
[2024-12-22] MEDS: carisoprodoL 350 MG TAB PO PRN (22:57)
[2024-12-22] MEDS: VANCOMYCIN 1,500 MG in SODIUM CHLORIDE 0.9% 500 ML 500 ML IVPB SCH (23:21)
[2024-12-23] MEDS ORDERED: ACETAMINOPHEN TAB 325 MG TAB PO PRN (02:00)
[2024-12-23] MEDS: VANCOMYCIN 1,500 MG in SODIUM CHLORIDE 0.9% 500 ML 500 ML IVPB SCH (02:05)
[2024-12-23] MEDS: PROCHLORPERAZINE 5 MG TAB PO SCH (05:07)
[2024-12-23] MEDS: PANTOPRAZOLE 40 MG TABLET PO SCH (05:08)
[2024-12-23] MEDS: metFORMIN 500 MG TAB PO SCH (05:08)
[2024-12-23 05:25] LABS: African American GFR (CKD) >90 (>60 ml/min/1.73 sqM); Non-African American GFR(CKD) 87 (>60 ml/min/1.73 sqM)
[2024-12-23 05:45] LABS: Glucose,Whole Blood 137 mg/dL (70-110)
[2024-12-23] MEDS: INSULIN LISPRO (HumaLOG) 100 UNIT/ML 10 mL VL SQ SCH (06:01)
[2024-12-23] MEDS: DAPAGLIFLOZIN PROPANEDIOL 10 MG TABLET PO SCH (08:59)
[2024-12-23] MEDS: CLOPIDOGREL 75 MG TAB PO SCH (08:59)
[2024-12-23] MEDS: ATORVASTATIN 10 MG TAB PO SCH (08:59)
[2024-12-23] MEDS ORDERED: VANCOMYCIN 1,500 MG in SODIUM CHLORIDE 0.9% 500 ML 500 ML IVPB SCH (09:00)
[2024-12-23] MEDS: DULoxetine HCL 30 MG CAPSULE.DR PO SCH (09:36)
[2024-12-23 12:13] LABS: Glucose,Whole Blood 224 mg/dL (70-110)
[2024-12-23] MEDS ORDERED: hydrALAZINE HCL 20 MG/ML 1 ML VIAL IVP PRN (14:48)
[2024-12-23] MEDS: HEPARIN SODIUM,PORCINE 5,000 UNIT/ML 1 ML VIAL SQ SCH (16:30)
[2024-12-23 17:07] LABS: Glucose,Whole Blood 170 mg/dL (70-110)
[2024-12-23 19:45] LABS: Glucose,Whole Blood 334 mg/dL (70-110)
[2024-12-23] MEDS: PANTOPRAZOLE 40 MG/10 ML VIAL IVP SCH (20:22)
--- NOTE | 2024-12-23 23:51 | HP ---
HISTORY AND PHYSICAL CHIEF COMPLAINT: Nausea and vomiting. HISTORY OF PRESENT ILLNESS: This is a 74-year-old gentleman with a past medical history of multiple medical problems, recently had a left hip arthroplasty done from [facility]. The patient has nausea and vomiting for the last 3 days. The patient is unable to keep anything down. There is no history of any fever, rigors, or chills at this time. PAST MEDICAL HISTORY: Reviewed include diabetes mellitus, and the rest of the history in charts are also reviewed. HOME MEDICATIONS: Reviewed include Colace. Dose and rest of medications are reviewed. ALLERGIES: Reviewed include Benicar. FAMILY HISTORY: No history of heart disease or strokes in the family. SOCIAL HISTORY: Current smoking, history of THC. REVIEW OF SYSTEMS: A 14-point review of systems is negative except as mentioned earlier. PHYSICAL EXAMINATION: VITAL SIGNS: Pulse is 76, blood pressure 167/65, respirations 15. HEENT: Conjunctivae normal. NECK: No JVD. CARDIOVASCULAR: S1, S2. RESPIRATIONS: Breath sounds diminished at the bases. No rhonchi. No crackles. ABDOMEN: Soft. Mild diffuse discomfort. No mass palpable. LEGS: Status post left hip arthroplasty. NERVOUS SYSTEM: No focal deficits. LABORATORY DATA: D-dimer is 1.8. The rest of the labs are noted. ASSESSMENT: 1. Nausea, vomiting, possible acute gastritis. 2. Elevated WBC. 3. Anemia. 4. Elevated D-dimer with no evidence of any pulmonary embolism. 5. Possible esophagitis in the CAT scan. 6. Intermuscular gas in the left. 7. Diabetes type 2. 8. Hypertension. 9. multiple complex medical issues. RECOMMENDATIONS: Recommend to continue current medications and continue symptomatic treatment. White count is elevated. I would recommend consultation with Infectious Disease. Otherwise, symptomatic treatment will be provided. Prognosis guarded. Further recommendations to follow. See orders for further details. MMODL / IJN: [id number] / MTDD
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
[2024-12-24 05:13] LABS: Glucose,Whole Blood 127 mg/dL (70-110)
[2024-12-24 05:26] LABS: Carbon Dioxide 22 mmol/L (22-30); Chloride 111 mmol/L (98-107); Glucose 98 mg/dL (74-99); Sodium 143 mmol/L (137-145)
[2024-12-24 05:27] LABS: ALT 10 U/L (4-49); AST 14 U/L (17-59); African American GFR (CKD) >90 (>60 ml/min/1.73 sqM); Albumin 2.9 g/dL (3.5-5.0); Albumin/Globulin Ratio 1.3; Alkaline Phosphatase 38 U/L (38-126); Anion Gap 10 mmol/L; Blood Urea Nitrogen 17 mg/dL (9-20); Calcium 8.9 mg/dL (8.4-10.2); Globulin 2.2 g/dL; Non-African American GFR(CKD) >90 (>60 ml/min/1.73 sqM); Total Bilirubin 0.7 mg/dL (0.2-1.3); Total Protein 5.1 g/dL (6.3-8.2)
[2024-12-24] MEDS: amLODIPine 10 MG TAB PO SCH (08:32)
--- NOTE | 2024-12-24 09:03 | US ---
EXAMINATION TYPE: US abdomen limited DATE OF EXAM: 12/24/2024 COMPARISON: CT abdomen and pelvis 2 days earlier CLINICAL INDICATION: Male, 74 years old with history of Right upper quadrant rule out cholecystitis; RUQ pain, stones seen on CT TECHNIQUE: Grayscale and color Doppler imaging of the right upper quadrant was performed. FINDINGS: EXAM MEASUREMENTS: Liver Length: 16.0 cm Gallbladder Wall: 0.2 cm CBD: 0.6 cm Right Kidney: 10.8 x 5.2 x 6.3 cm Pancreas: wnl Liver: wnl, cyst noted on CT not appreciated by US Gallbladder: multiple fundal stones seen with no wall thickening or gutter fluid Evidence for sonographic Faye's sign: no CBD: wnl Right Kidney: A few anechoic lesions, largest mid/inf pole = 2.6 x 2.3 x 2.0cm Gallstones are redemonstrated. No pericholecystic fluid or abnormal wall thickening. Sonographic Murp hy sign negative. A few simple thin-walled cysts throughout the right kidney are redemonstrated. IMPRESSION: Gallstones redemonstrated without ultrasound evidence for acute cholecystitis. [facility], , 12/24/2024 9:01 AM
[2024-12-24 09:23] LABS: Basophils # (A) 0.05 X 10*3/uL (0.00-0.10); Basophils % (A) 0.6 %; Eosinophils # (A) 0.03 X 10*3/uL (0.04-0.35); Eosinophils % (A) 0.4 %; HCT 25.3 % (39.6-50.0); Lymphocytes # (A) 0.91 X 10*3/uL (0.90-5.00); Lymphocytes % (A) 11.6 %; MCH 28.1 pg (27.0-32.0); MCHC 31.6 g/dL (32.0-37.0); MCV 88.8 FL (80.0-97.0); Mean Platelet Volume 10.4 FL (9.5-12.2); Monocytes # (A) 0.88 X 10*3/uL (0.20-1.00); Monocytes % (A) 11.2 %; NRBC Per 100 WBC 0.04 X 10*3/uL (0.00-0.01); Neutrophils # (A) 5.62 X 10*3/uL (1.80-7.70); Neutrophils % (A) 71.6 %; Platelet Count 187 X 10*3/uL (140-440); RBC 2.85 X 10*6/uL (4.40-5.60); RDW 15.8 % (11.5-14.5); WBC 7.85 X 10*3/uL (4.50-10.00)
[2024-12-24 11:55] LABS: Erythrocyte Sedimentation Rate 28 mm/Hr (0-20)
[2024-12-24 12:16] LABS: Glucose,Whole Blood 130 mg/dL (70-110)
[2024-12-24] MEDS ORDERED: Potassium Replacement Protocol 1 EACH MISC MISCELLANE PRN (14:06)
--- NOTE | 2024-12-24 16:38 | P.PN ---
Subjective Progress Note Date: 12/24/24 Principal diagnosis: Reason for follow-up is leukocytosis and question of left hip infection Patient is a 74-year-old male with a past medical history difficult for diabetes mellitus hypertension osteoarthritis in this patient who recently did have a left hip arthroplasty done at [facility] presenting to the hospital now for evaluation of nausea and vomiting for the last 3 days before presentation to hospital did have CT abdominal pelvis concerning for some air in the left hip area with a question of postsurgical versus infection. On today's evaluation that is 12/24/2024, Patient is afebrile patient is currently on room air and denies having any shortness of breath, the patient denies any chest pain or cough, the patient mention improvement in the nausea no further vomiting no abdominal pain or pain to the left hip area no diarrhea. The patient white count is 7.85, ESR is 28 creatinine 0.73 CRP is 2.0 Pro-Devyn 0.11 abdominal ultrasound gallstones but no acute cholecystitis Objective - Vital Signs Vital signs: Vital Signs Temp 98.2 F 12/24/24 07:38 Pulse 72 12/24/24 07:38 Resp 17 12/24/24 07:38 BP 158/79 12/24/24 07:38 Pulse Ox 98 12/24/24 07:38 FiO2 Intake & Output 12/23/24 12/24/24 12/24/24 18:59 06:59 18:59 Other: # Voids 2 1 - Exam GENERAL DESCRIPTION: An elderly male lying in bed in no distress RESPIRATORY SYSTEM: Unlabored breathing , decreased breath sounds at bases HEART: S1 S2 regular rate and rhythm , ABDOMEN: Soft , no tenderness EXTREMITIES: Left hip incision is currently covered with a silver dressing no surrounding redness or drainage - Labs CBC & Chem 7: 12/24/24 04:52 12/24/24 04:52 Labs: Abnormal Lab Results - Last 24 Hours (Table) 12/23/24 12/23/24 12/24/24 Range/Units 17:01 19:44 04:52 RBC (4.40-5.60) X 10*6/uL Hgb (13.0-17.0) g/dL Hct (39.6-50.0) % MCHC (32.0-37.0) g/dL RDW (11.5-14.5) % Immature Gran # (0.00-0.04) X 10*3/uL Eosinophils # (0.04-0.35) X 10*3/uL NRBC/100 WBC Diff (0.00-0.01) X 10*3/uL ESR (0-20) mm/Hr Potassium 3.0 L (3.5-5.1) mmol/L Chloride 111 H (98-107) mmol/L POC Glucose (mg/dL) 170 H 334 H (70-110) mg/dL AST 14 L (17-59) U/L C-Reactive Protein 2.0 H (<1.0) mg/dL Total Protein 5.1 L (6.3-8.2) g/dL Albumin 2.9 L (3.5-5.0) g/dL 12/24/24 12/24/24 12/24/24 Range/Units 04:52 05:11 12:10 RBC 2.85 L (4.40-5.60) X 10*6/uL Hgb 8.0 L (13.0-17.0) g/dL Hct 25.3 L (39.6-50.0) % MCHC 31.6 L (32.0-37.0) g/dL RDW 15.8 H (11.5-14.5) % Immature Gran # 0.36 H (0.00-0.04) X 10*3/uL Eosinophils # 0.03 L (0.04-0.35) X 10*3/uL NRBC/100 WBC Diff 0.04 H (0.00-0.01) X 10*3/uL ESR 28 H (0-20) mm/Hr Potassium (3.5-5.1) mmol/L Chloride (98-107) mmol/L POC Glucose (mg/dL) 127 H 130 H (70-110) mg/dL AST (17-59) U/L C-Reactive Protein (<1.0) mg/dL Total Protein (6.3-8.2) g/dL Albumin (3.5-5.0) g/dL Microbiology - Last 24 Hours (Table) 12/22/24 19:37 Blood Culture - Preliminary Blood Assessment and Plan (1) Leukocytosis Current Visit: Yes Status: Acute Code(s): D72.829 - ELEVATED WHITE BLOOD CELL COUNT, UNSPECIFIED SNOMED Code(s): 096973773 (2) Abnormal CT of the abdomen Current Visit: Yes Status: Acute Code(s): R93.5 - ABN FINDINGS ON DX IMAGING OF ABD REGIONS, INC RETROPERITON SNOMED Code(s): 74669489879574362 Plan: 1patient presented hospital with intractable nausea vomiting unable to keep anything down did have a CT of abdominal pelvis did show some layering of the gallbladder but no features of cholecystitis no other acute abnormality however pointed towards abnormality to the left hip in this patient who recently did have left hip arthroplasty with the CT findings are concerning however the patient is currently not running any fever denies pain to the left hip site and there was no evidence of any erythema or tenderness on examination with a question of possible postop finding infection less likely but not entirely excluded 2-patient did have mild elevated inflammatory markers 3- ultrasound of the liver gallbladder area history of gallstone but no cholecystitis 4-with clinic suspicious for infection we will go ahead discontinue vancomycin and monitor the patient closely off antibiotic therapy Dictation was produced using [employer] dictation software. please excuse any grammatical, word or spelling errors. Time with Patient: Less than 30
[2024-12-24] MEDS: POTASSIUM CHLORIDE ER 20 MEQ TAB.ER PO SCH (16:47)
[2024-12-24 17:29] LABS: Glucose,Whole Blood 176 mg/dL (70-110)
--- NOTE | 2024-12-24 19:56 | PN ---
PROGRESS NOTE DATE OF SERVICE: 12/24/2024 SUBJECTIVE: This 74-year-old admitted with nausea, vomiting, possible acute gastritis, is being closely monitored. Ultrasound of the abdomen is negative. PHYSICAL EXAMINATION: VITAL SIGNS: Pulse is 72, blood pressure 158/70, respirations 17. CHEST: Clear to auscultation. CARDIOVASCULAR: S1, S2. ABDOMEN: Soft. LABORATORY DATA: Hemoglobin 8. Potassium 3. ASSESSMENT: 1. Nausea, vomiting, and possible acute gastritis. 2. Elevated WBC. 3. Hypokalemia. 4. Possible esophagitis in the CAT scan. 5. Intramuscular gas on the left. RECOMMENDATIONS: Recommend to continue current medications and continue symptomatic treatment. Closely follow with Infectious Disease. Procal is negative. Surgical evaluation. The patient might require EGD at some point. Overall prognosis guarded. Further recommendations to follow. See order for details MMODL / IJN: [id number] /
[2024-12-24 20:35] LABS: Glucose,Whole Blood 101 mg/dL (70-110)
[2024-12-24] MEDS: VANCOMYCIN TROUGH DUE 1 EACH MISC MISCELLANE ONE (22:19)
[2024-12-25 05:46] LABS: Glucose,Whole Blood 98 mg/dL (70-110)
[2024-12-25 08:43] LABS: HCT 26.8 % (39.6-50.0); HGB 8.4 g/dL (13.0-17.0); MCH 27.6 pg (27.0-32.0); MCHC 31.3 g/dL (32.0-37.0); MCV 88.2 FL (80.0-97.0); Mean Platelet Volume 10.3 FL (9.5-12.2); NRBC Per 100 WBC 0.05 X 10*3/uL (0.00-0.01); Platelet Count 201 X 10*3/uL (140-440); RBC 3.04 X 10*6/uL (4.40-5.60); RDW 15.6 % (11.5-14.5); WBC 8.76 X 10*3/uL (4.50-10.00)
[2024-12-25 08:46] VITALS: RESP 18
[2024-12-25 09:18] LABS: Basophils # (M) 0.18 X 10*3/uL (0.00-0.10); Eosinophils # (M) 0.09 X 10*3/uL (0.04-0.35); Lymphocytes # (M) 0.35 X 10*3/uL (0.90-5.00); Monocytes # (M) 0.35 X 10*3/uL (0.20-1.00); Neutrophils # (M) 7.62 X 10*3/uL (1.80-7.70); Neutrophils % (M) 87 %
[2024-12-25 09:27] LABS: ALT 10 U/L (10-49); AST 13 U/L (14-35); Albumin 3.3 g/dL (3.8-4.9); Albumin/Globulin Ratio 2.06 Ratio (1.60-3.17); Alkaline Phosphatase 37 U/L (41-126); BUN/Creat Ratio 17.43 Ratio (12.00-20.00); Blood Urea Nitrogen 12.2 mg/dL (9.0-27.0); Calcium 8.4 mg/dL (8.7-10.3); Carbon Dioxide 20.1 mmol/L (21.6-31.8); Chloride 107 mmol/L (96-109); Globulin 1.6 g/dL (1.6-3.3); Glucose 93 mg/dL (70-110); Potassium 3.2 mmol/L (3.5-5.5); Sodium 142 mmol/L (135-145); Total Bilirubin 0.6 mg/dL (0.3-1.2); Total Protein 4.9 g/dL (6.2-8.2)
[2024-12-25] MEDS ORDERED: Potassium Replacement Protocol 1 EACH MISC MISCELLANE PRN (11:43)
[2024-12-25 12:22] LABS: Glucose,Whole Blood 159 mg/dL (70-110)
[2024-12-25] MEDS: POTASSIUM CHLORIDE ER 20 MEQ TAB.ER PO SCH (12:33)
[2024-12-25 13:08] VITALS: BP 188/90; PULSE 77; TEMP 97.8
--- NOTE | 2024-12-25 16:39 | P.PN ---
Subjective Progress Note Date: 12/25/24 Principal diagnosis: Reason for follow-up is leukocytosis and question of left hip infection Patient is a 74-year-old male with a past medical history difficult for diabetes mellitus hypertension osteoarthritis in this patient who recently did have a left hip arthroplasty done at [facility] presenting to the hospital now for evaluation of nausea and vomiting for the last 3 days before presentation to hospital did have CT abdominal pelvis concerning for some air in the left hip area with a question of postsurgical versus infection. On today's evaluation that is12/25/2024, patient has been afebrile, patient is breathing comfortably and is currently on room air, patient denies having any significant cough no chest pain, patient denies nausea vomiting or diarrhea and no abdominal pain, mention feeling better wants to go home no pain to the left hip area. Patient white count is 8.76, creatinine 0.7 blood culture has been negative so far Objective - Vital Signs Vital signs: Vital Signs Temp 97.9 F 12/25/24 08:21 Pulse 75 12/25/24 08:21 Resp 18 12/25/24 08:21 BP 191/83 12/25/24 08:21 Pulse Ox 99 12/25/24 08:21 FiO2 Intake & Output 12/24/24 12/25/24 12/25/24 18:59 06:59 18:59 Other: # Voids 2 2 - Exam GENERAL DESCRIPTION: An elderly male lying in bed in no distress RESPIRATORY SYSTEM: Unlabored breathing , decreased breath sounds at bases HEART: S1 S2 regular rate and rhythm , ABDOMEN: Soft , no tenderness EXTREMITIES: Left hip incision is currently covered with a silver dressing no surrounding redness or drainage - Labs CBC & Chem 7: 12/25/24 05:34 12/25/24 05:34 Labs: Abnormal Lab Results - Last 24 Hours (Table) 12/24/24 12/24/24 12/24/24 Range/Units 04:52 12:10 17:04 RBC (4.40-5.60) X 10*6/uL Hgb (13.0-17.0) g/dL Hct (39.6-50.0) % MCHC (32.0-37.0) g/dL RDW (11.5-14.5) % Lymphocytes # (Manual) (0.90-5.00) X 10*3/uL Basophils # (Manual) (0.00-0.10) X 10*3/uL NRBC/100 WBC Diff (0.00-0.01) X 10*3/uL ESR 28 H (0-20) mm/Hr Potassium (3.5-5.5) mmol/L Carbon Dioxide (21.6-31.8) mmol/L Anion Gap (4.00-12.00) mmol/L POC Glucose (mg/dL) 130 H 176 H (70-110) mg/dL Calcium (8.7-10.3) mg/dL AST (14-35) U/L Alkaline Phosphatase (41-126) U/L Total Protein (6.2-8.2) g/dL Albumin (3.8-4.9) g/dL 12/25/24 12/25/24 Range/Units 05:34 05:34 RBC 3.04 L (4.40-5.60) X 10*6/uL Hgb 8.4 L (13.0-17.0) g/dL Hct 26.8 L (39.6-50.0) % MCHC 31.3 L (32.0-37.0) g/dL RDW 15.6 H (11.5-14.5) % Lymphocytes # (Manual) 0.35 L (0.90-5.00) X 10*3/uL Basophils # (Manual) 0.18 H (0.00-0.10) X 10*3/uL NRBC/100 WBC Diff 0.05 H (0.00-0.01) X 10*3/uL ESR (0-20) mm/Hr Potassium 3.2 L (3.5-5.5) mmol/L Carbon Dioxide 20.1 L (21.6-31.8) mmol/L Anion Gap 14.90 H (4.00-12.00) mmol/L POC Glucose (mg/dL) (70-110) mg/dL Calcium 8.4 L (8.7-10.3) mg/dL AST 13 L (14-35) U/L Alkaline Phosphatase 37 L (41-126) U/L Total Protein 4.9 L (6.2-8.2) g/dL Albumin 3.3 L (3.8-4.9) g/dL Microbiology - Last 24 Hours (Table) 12/22/24 19:37 Blood Culture - Preliminary Blood Assessment and Plan (1) Leukocytosis Current Visit: Yes Status: Acute Code(s): D72.829 - ELEVATED WHITE BLOOD CELL COUNT, UNSPECIFIED SNOMED Code(s): 228431895 (2) Abnormal CT of the abdomen Current Visit: Yes Status: Acute Code(s): R93.5 - ABN FINDINGS ON DX IMAGING OF ABD REGIONS, INC RETROPERITON SNOMED Code(s): 07401156025905021 Plan: 1patient presented hospital with intractable nausea vomiting unable to keep anything down did have a CT of abdominal pelvis did show some layering of the gallbladder but no features of cholecystitis no other acute abnormality however pointed towards abnormality to the left hip in this patient who recently did have left hip arthroplasty with the CT findings are concerning however the patient is currently not running any fever denies pain to the left hip site and there was no evidence of any erythema or tenderness on examination with a question of possible postop finding infection less likely but not entirely excluded 2-patient did have mild elevated inflammatory markers 3- ultrasound of the liver gallbladder area history of gallstone but no cholecystitis 4-with a low suspicious for infection vancomycin was discontinued yesterday patient seem to be doing well off antibiotic therapy at this point hence recommend no antibiotic on discharge though need to follow-up with his surgeon after discharge from the hospital Dictation was produced using [employer] dictation software. please excuse any grammatical, word or spelling errors. Time with Patient: Less than 30
--- NOTE | 2024-12-28 11:09 | P.DS ---
Providers Date of admission: 12/22/24 20:10 Expected date of discharge: 12/25/24 Attending physician: Brian Garcia MD Consults: 12/23/24 14:47 Consult Physician Routine Consulting Provider: Lisa Saldana Consult Reason/Comments: high wbc, air on ct scan Do you want consulting provider notified?: Yes Primary care physician: Quan [facility] Course: Final diagnosis Nausea, vomiting, likely secondary to acute gastritis Elevated white blood count, likely reactive secondary to above, improved Hypokalemia, replaced Recent left hip arthroplasty Diabetes mellitus, type II Osteoarthritis Hypertension Hearing disorder, deafness CABG in 2023 Continued ongoing nicotine dependence GI prophylaxis DVT prophylaxis Full code Discharge disposition Patient is being discharged in a stable condition with guarded prognosis to home. Patient will follow-up with Dr. Mann in the outpatient setting upon discharge. Patient is to continue with continued current medications as schedul ed. Recommend repeat labs in the outpatient setting. Total time taken is greater than 35 minutes. Hospital course This is a 74-year-old male who was recently admitted with nausea and vomiting intractable possible acute gastritis being closely monitored. Imaging of the abdomen was negative and was maintained on empiric antibiotics due to an elevated white count. Patient following with infectious disease recommending monitoring off antibiotic therapy showing clinical improvement and would like to go home. Nausea vomiting has been improved and patient is tolerating diet. Patient has been cleared by consultations and will be discharged today. Patient to follow-up outpatient with GI and/or surgery for possible endoscopy intervention. Please refer to other consultation notes for further HPI. Patient has been instructed to follow-up on repeat labs in the outpatient setting and see his primary care provider sometime this week. Currently no reports of chest pain, shortness of breath, or palpitations. Patient is afebrile. No reports of nausea or vomiting and patient is tolerating diet. Patient will be discharged home today. Physical exam: Gen: This is a 74-year-old male who is awake, alert and oriented x 3, well- developed, elderly appearing, thin built HEENT: Head is atraumatic, normocephalic. Pupils equal, round. Sclerae is anicteric. NECK: Supple. No JVD. No lymphadenopathy. No thyromegaly. LUNGS: Diminished breath sounds bilaterally otherwise clear to auscultation. No wheezes or rhonchi. No intercostal retractions. HEART: Regular rate and rhythm. No murmur. ABDOMEN: Soft. Bowel sounds are present. No masses. No tenderness. EXTREMITIES: No pedal edema. No calf tenderness. NEUROLOGICAL: Patient is awake, alert and oriented x3. Cranial nerves 2 through 12 are grossly intact. Please refer to medication reconciliation sheet for a list of medications. The impression and plan of care has been dictated by Lakia Moeller, Nurse Practitioner as directed. Dr. Ramses MD I have performed a history and examination and MDM of this patient, discussed the same with the dictator, and agree with the dictator's assessment and plan as written ,documented as a scribe. Based on total visit time, I have performed more than 50% of the visit. Patient Condition at Discharge: Stable Plan - Discharge Summary New Discharge Prescriptions: New amLODIPine [Norvasc] 10 mg PO DAILY #30 tab Calcium Carbonate [Tums] 1,000 mg PO Q4HR PRN tab PRN Reason: Dyspepsia Acetaminophen Tab [Tylenol] 650 mg PO Q6HR PRN tab PRN Reason: Mild Pain Or Fever > 100.5 Continue carisoprodoL [Soma] 350 mg PO TID PRN PRN Reason: Pain Rosuvastatin Calcium 5 mg PO DAILY Empagliflozin [Jardiance] 25 mg PO DAILY #30 tablet Clopidogrel [Plavix] 75 mg PO DAILY #30 tab Omeprazole [PriLOSEC] 20 mg PO DAILY cefaDROXiL [Duricef] 500 mg PO BID Prochlorperazine [Compazine] 5 mg PO Q8H oxyCODONE HCL [OxyIR] 5 mg PO DAILY PRN PRN Reason: Pain Finasteride [Proscar] 5 mg PO HS Metoprolol Tartrate [Lopressor] 50 mg PO BID Docusate [Colace] 100 mg PO BID PRN PRN Reason: Constipation Tamsulosin [Flomax] 0.4 mg PO BID Zolpidem [Ambien] 10 mg PO HS Ondansetron [Zofran] 4 mg PO Q8H PRN PRN Reason: Nausea metFORMIN HCL 1,000 mg PO BID DULoxetine HCL [Cymbalta] 30 mg PO DAILY Discontinued amLODIPine [Norvasc] 5 mg PO DAILY Discharge Medication List carisoprodoL [Soma] 350 mg PO TID PRN 09/21/16 [History] Rosuvastatin Calcium 5 mg PO DAILY 01/26/24 [History] Tamsulosin [Flomax] 0.4 mg PO BID 01/26/24 [History] Zolpidem [Ambien] 10 mg PO HS 01/26/24 [History] Clopidogrel [Plavix] 75 mg PO DAILY #30 tab 02/11/24 [Rx] Empagliflozin [Jardiance] 25 mg PO DAILY #30 tablet 02/11/24 [Rx] DULoxetine HCL [Cymbalta] 30 mg PO DAILY 12/22/24 [History] Docusate [Colace] 100 mg PO BID PRN 12/22/24 [History] Finasteride [Proscar] 5 mg PO HS 12/22/24 [History] Metoprolol Tartrate [Lopressor] 50 mg PO BID 12/22/24 [History] Omeprazole [PriLOSEC] 20 mg PO DAILY 12/22/24 [History] Ondansetron [Zofran] 4 mg PO Q8H PRN 12/22/24 [History] Prochlorperazine [Compazine] 5 mg PO Q8H 12/22/24 [History] cefaDROXiL [Duricef] 500 mg PO BID 12/22/24 [History] metFORMIN HCL 1,000 mg PO BID 12/22/24 [History] oxyCODONE HCL [OxyIR] 5 mg PO DAILY PRN 12/22/24 [History] Acetaminophen Tab [Tylenol] 650 mg PO Q6HR PRN tab 12/25/24 [Rx] Calcium Carbonate [Tums] 1,000 mg PO Q4HR PRN tab 12/25/24 [Rx] amLODIPine [Norvasc] 10 mg PO DAILY #30 tab 12/25/24 [Rx] Follow up Appointment(s)/Referral(s): Quan Mann MD [Primary Care Provider] - 1-2 days (Office closed at time of discharge, please call to set up you follow up visit. [phone]) Ambulatory/Diagnostic Orders: Basic Metabolic Panel [LAB.AMB] Time Frame: 3 Days, Location: None Selected Patient Instructions/Handouts: Amlodipine (By mouth), Dehydration (DC), Acute Nausea and Vomiting (DC) Activity/Diet/Wound Care/Special Instructions: Activity limited until follow-up Follow-up with primary care provider on discharge Continue taking medications as prescribed Repeat labs in the next few days Slowly advance diet as tolerated Discharge Disposition: HOME SELF-CARE
== END 2024-12-25 18:38 | disposition home or self-care (01) ==
LOC: EC 14:24 → 6NMEDSUR 20:10 → 5NMEDONC 12-25 07:56
PROVIDERS: ADMIT Internal Medicine; ATTEND Internal Medicine
DX: R11.2 Nausea with vomiting, unspecified (principal); D72.829 Elevated white blood cell count, unspecified; D64.9 Anemia, unspecified; R79.89 Other specified abnormal findings of blood chemistry; R94.8 Abnormal results of function studies of other organs and systems; E87.6 Hypokalemia; K59.00 Constipation, unspecified; E11.9 Type 2 diabetes mellitus without complications; G62.9 Polyneuropathy, unspecified; G89.29 Other chronic pain; M54.50 Low back pain, unspecified; F17.200 Nicotine dependence, unspecified, uncomplicated; H91.90 Unspecified hearing loss, unspecified ear; I10 Essential (primary) hypertension; I25.10 Atherosclerotic heart disease of native coronary artery without angina pectoris; M19.90 Unspecified osteoarthritis, unspecified site; Z79.02 Long term (current) use of antithrombotics/antiplatelets; Z79.84 Long term (current) use of oral hypoglycemic drugs; Z79.899 Other long term (current) drug therapy; Z95.1 Presence of aortocoronary bypass graft; Z96.642 Presence of left artificial hip joint; Z88.8 Allergy status to other drugs, medicaments and biological substances
CPT/HCPCS: 96376 ×2; 96366 ×2; 96367 ×2; 96372 ×3; 96375 ×3; 96361; 96365; 99285; 36415; 93005; 85379; 83880; 80053 ×3; 85652; 82565; 83605; 83690; 84484; 85025 ×3; 80202; 85610; 85730; 86140; 81001; 87040 ×2; 84145; 87636; 76705; 71275; 74177; G0378 ×4; S0183 ×3; S0138 ×3; J3370 ×3; J0780; J1644 ×3; J2405; J0692; J0131; Q9967; J1920; J2470 ×3

== ENCOUNTER → 2025-01-23 | Outpatient (CLI) | payer MEDICARE ==
--- NOTE | 2025-01-23 16:27 | US ---
EXAMINATION TYPE: US venous doppler duplex LE LT DATE OF EXAM: 01/23/2025 4:16 PM COMPARISON: NONE CLINICAL INDICATION: Male, 74 years old with history of R22.42 SWELLING LEFT LEG; TECHNIQUE: The lower extremity deep venous system is examined utilizing real time linear array sonog celine with graded compression, color doppler sonography, and spectral doppler. SIDE PERFORMED: Left FINDINGS: VESSELS IMAGED: Common Femoral Vein Deep Femoral Vein Greater Saphenous Vein * Femoral Vein Popliteal Vein Small Saphenous Vein * Proximal Calf Veins (* superficial vessels) Left Leg: Appears negative for DVT IMPRESSION: No evidence of deep vein thrombosis of the left lower extremity. [facility], , 01/23/2025 4:25 PM
== END | disposition home or self-care (01) ==
LOC: RADUSWWP 15:59
PROVIDERS: ATTEND Internal Medicine Interventional Cardiology
DX: R22.42 Localized swelling, mass and lump, left lower limb (principal)